=== PATIENT | female | born 1945 | race Caucasian/White ===

== ENCOUNTER 2019-03-30 10:25 | Outpatient (CLI) | payer MEDICARE, BC, SELFPAY ==
[2019-03-30 13:32] LABS: Potassium 3.1 mmol/L (3.4-5.0)
== END 2019-03-30 10:26 | disposition home or self-care (01) ==
LOC: ANHWCLAB 10:29
PROVIDERS: PCP Emergency Medicine; Visit Provider Emergency Medicine
DX: E87.6 Hypokalemia (principal)
CPT/HCPCS: 36415; 84132

== ENCOUNTER 2019-04-09 10:55 | Outpatient (CLI) | payer MEDICARE, BC, SELFPAY ==
[2019-04-09 13:51] LABS: Blood Urea Nitrogen 15 mg/dL (7-17); Calcium 9.1 mg/dL (8.4-10.2); Carbon Dioxide 24 mmol/L (22-30); Chloride 103 mmol/L (98-107); Estimated Glomerular Filt Rate > 60; Glucose 95 mg/dL (65-105); Potassium 3.8 mmol/L (3.4-5.0); Sodium 141 mmol/L (137-145)
[2019-04-09 14:21] LABS: Thyroid Stimulating Hormone 0.213 uIU/mL (0.465-4.680)
== END 2019-04-09 10:56 | disposition home or self-care (01) ==
LOC: ANHWCLAB 10:58
PROVIDERS: PCP Emergency Medicine; Visit Provider Emergency Medicine
DX: E78.2 Mixed hyperlipidemia (principal); E87.6 Hypokalemia; E03.9 Hypothyroidism, unspecified
CPT/HCPCS: 36415; 80048; 84443

== ENCOUNTER 2019-05-19 10:39 | Outpatient (CLI) | payer MEDICARE, BC, SELFPAY ==
[2019-05-19 14:01] LABS: Alanine Aminotransferase 27 U/L (4-35); Albumin Level 4.5 g/dL (3.5-5.1); Alkaline Phosphatase 70 U/L (38-126); Aspartate Amino Transferase 26 U/L (14-36); Bilirubin,Total 0.7 mg/dL (0.2-1.3); Blood Urea Nitrogen 20 mg/dL (7-17); Calcium 9.3 mg/dL (8.4-10.2); Carbon Dioxide 27 mmol/L (22-30); Chloride 104 mmol/L (98-107); Cholesterol 228 mg/dL (0-200); Estimated Glomerular Filt Rate > 60; Glucose 107 mg/dL (65-105); HDL Direct 76 mg/dL; Potassium 3.7 mmol/L (3.4-5.0); Sodium 140 mmol/L (137-145); Triglycerides 139 mg/dL (<150)
[2019-05-19 14:12] LABS: LDL Cholesterol Direct 132 mg/dL
== END 2019-05-19 10:40 | disposition home or self-care (01) ==
PROVIDERS: PCP Emergency Medicine; Visit Provider Emergency Medicine
DX: E78.2 Mixed hyperlipidemia (principal); E03.9 Hypothyroidism, unspecified
CPT/HCPCS: 36415; 80053; 80061; 84443

== ENCOUNTER 2019-10-16 09:37 | Outpatient (CLI) | payer MEDICARE, BC, SELFPAY ==
[2019-10-16 10:15] LABS: Alanine Aminotransferase 24 U/L (4-35); Albumin Level 4.4 g/dL (3.5-5.1); Alkaline Phosphatase 57 U/L (38-126); Anion Gap 8 mmol/L (8-16); Aspartate Amino Transferase 27 U/L (14-36); Bilirubin,Total 0.7 mg/dL (0.2-1.3); Blood Urea Nitrogen 12 mg/dL (7-17); Carbon Dioxide 32 mmol/L (22-30); Chloride 102 mmol/L (98-107); Cholesterol 185 mg/dL (0-200); Estimated Glomerular Filt Rate > 60; Glucose 103 mg/dL (65-105); HDL Direct 53 mg/dL; Potassium 3.1 mmol/L (3.4-5.0); Sodium 142 mmol/L (137-145); Triglycerides 140 mg/dL (<150)
[2019-10-16 10:33] LABS: LDL Cholesterol Direct 93 mg/dL
== END 2019-10-16 09:38 | disposition home or self-care (01) ==
LOC: ANHLAB 09:40
PROVIDERS: PCP Emergency Medicine; Visit Provider Emergency Medicine
DX: E78.5 Hyperlipidemia, unspecified (principal)
CPT/HCPCS: 36415; 80053; 80061

== ENCOUNTER 2019-10-23 10:13 | Outpatient (CLI) | payer MEDICARE, BC, SELFPAY ==
[2019-10-23 11:17] LABS: Potassium 3.4 mmol/L (3.4-5.0)
== END 2019-10-23 10:14 | disposition home or self-care (01) ==
LOC: ANHLAB 10:15
PROVIDERS: PCP Emergency Medicine; Visit Provider Emergency Medicine
DX: E78.5 Hyperlipidemia, unspecified (principal); E87.6 Hypokalemia
CPT/HCPCS: 36415; 84132

== ENCOUNTER 2019-11-06 09:00 | Outpatient (CLI) | payer MEDICARE, BC, SELFPAY ==
[2019-11-06 09:53] LABS: Potassium 3.4 mmol/L (3.4-5.0)
== END 2019-11-06 09:01 | disposition home or self-care (01) ==
LOC: ANHLAB 09:02
PROVIDERS: PCP Emergency Medicine; Visit Provider Emergency Medicine
DX: Z86.39 Personal history of other endocrine, nutritional and metabolic disease (principal)
CPT/HCPCS: 36415; 84132

== ENCOUNTER → 2020-04-13 11:53 | Outpatient (CLI) | payer MEDICARE, BC, SELFPAY ==
[2020-04-13 19:41] LABS: SARS-CoV-2 RNA PCR Negative
== END ==
PROVIDERS: PCP Emergency Medicine; Visit Provider Emergency Medicine
DX: R68.89 Other general symptoms and signs (principal); Z20.822 Contact with and (suspected) exposure to COVID-19
CPT/HCPCS: C9803; U0003; U0005

== ENCOUNTER 2020-04-21 10:24 | Outpatient (CLI) | payer MEDICARE, BC, SELFPAY ==
[2020-04-21 11:02] LABS: Alanine Aminotransferase 27 U/L (4-35); Albumin Level 4.5 g/dL (3.5-5.1); Alkaline Phosphatase 54 U/L (38-126); Anion Gap 5 mmol/L (8-16); Aspartate Amino Transferase 31 U/L (14-36); Blood Urea Nitrogen 24 mg/dL (7-17); Calcium 9.6 mg/dL (8.4-10.2); Carbon Dioxide 35 mmol/L (22-30); Chloride 101 mmol/L (98-107); Cholesterol 220 mg/dL (0-200); Estimated Glomerular Filt Rate > 60; Glucose 109 mg/dL (65-105); HDL Direct 75 mg/dL; Potassium 3.5 mmol/L (3.4-5.0); Sodium 141 mmol/L (137-145); Triglycerides 111 mg/dL (<150)
[2020-04-21 11:14] LABS: LDL Cholesterol Direct 120 mg/dL
== END 2020-04-21 10:25 | disposition home or self-care (01) ==
LOC: ANHLAB 10:29
PROVIDERS: PCP Emergency Medicine; Visit Provider Emergency Medicine
DX: E78.2 Mixed hyperlipidemia (principal)
CPT/HCPCS: 36415; 80053; 80061; 84443

== ENCOUNTER 2020-06-16 09:28 | Outpatient (CLI) | payer MEDICARE, BC, SELFPAY ==
--- NOTE | ~2020-06-16 | MM_ITS ---
EXAMINATION: MM screening [facility] BI w sofia HISTORY: Screening mammogram TECHNIQUE: Craniocaudal and mediolateral oblique 3-D tomosynthesis images were obtained and synthetic 2-D images were generated. CAD analysis was submitted and interpreted. COMPARISON: 12/17/2018, 04/10/2017 BREAST PARENCHYMAL COMPOSITION: The breasts are almost entirely fatty. FINDINGS: RIGHT BREAST: There is no evidence of suspicious mass, calcification, or architectural distortion to suggest malignancy. There has been no significant interval change. LEFT BREAST: A mass is present in the posterior third of the inner breast 11 cm from the nipple. IMPRESSION: 1. Left breast mass. 2. Additional mammographic views and possible breast ultrasound are recommended. BI-RADS Category 0: Incomplete: Needs additional imaging evaluation. Reviewed, dictated and finalized at location A. IMPRESSION: 1. Left breast mass. 2. Additional mammographic views and possible breast ultrasound are recommended . BI-RADS Category 0: Incomplete: Needs additional imaging evaluation.
== END 2020-06-16 09:29 | disposition home or self-care (01) ==
LOC: ANHIMG 09:35
PROVIDERS: PCP Emergency Medicine; Visit Provider Emergency Medicine
DX: Z12.31 Encounter for screening mammogram for malignant neoplasm of breast (principal); R92.8 Other abnormal and inconclusive findings on diagnostic imaging of breast
CPT/HCPCS: 77063; 77067

== ENCOUNTER 2020-06-23 10:27 | Outpatient (CLI) | payer MEDICARE, BC, SELFPAY ==
--- NOTE | ~2020-06-23 | MMUS_ITS ---
EXAMINATION: MM diagnostic mammo unilat LT, US breast LT limited HISTORY: Left breast mass reported in posterior third of inner left breast on screening 06/16/2020 anh mogram TECHNIQUE: Additional 3-D tomosynthesis images of the left breast were performed and synthetic 2-D im ages were generated. CAD analysis was submitted and interpreted. High resolution upper and lower inn er quadrant left breast ultrasound was performed. COMPARISON: 06/16/2020, 12/17/2018 bilateral digital screening mammogram examinations FINDINGS: MAMMOGRAPHIC FINDINGS: An irregular 5 mm opacity is noted in the posterior aspect of the mid to upper inner left breast. The irregular margins and the fact that this is completely new since 12/17/2018 are suspicious. ULTRASOUND: 10:00 9 cm from nipple: There is an irregular hypoechoic 4.6 x 3.9 x 5 mm solid mass with posterior s hadowing, suspicious for small malignancy. IMPRESSION: 1. 5 mm irregular shadowing suspicious mass at left breast 10:00 9 cm from nipple, suggestive of karin gnancy 2. Ultrasound-guided biopsy of right breast 10:00 lesion is recommended BI-RADS category 4, suspicious findings. Dr. Rtoh telephoned the report and ultrasound guided biopsy recommendation on 06/23/[address] Young' answering service. Dr. Young returned the call at 1219 hours, and Dr. Roth gave the report of suspected small malignan cy and recommended ultrasound guided biopsy at 10:00 at right breast Reviewed, dictated and finalized at location A. IMPRESSION: 1. 5 mm irregular shadowing suspicious mass at left breast 10:00 9 cm from nipp le, suggestive of malignancy 2. Ultrasound-guided biopsy of right breast 10:00 lesion is recommended BI-RADS category 4, suspicious findings. Dr. Roth telephoned the report and ultrasound guided biopsy recommendation on at [address] Young' answering service. Dr. Young returned the call at 1219 hours, and Dr. Roth gave the report of pabon spected small malignancy and recommended ultrasound guided biopsy at 10:00 at [facility] breast
== END 2020-06-23 10:28 | disposition home or self-care (01) ==
PROVIDERS: PCP Emergency Medicine; Visit Provider Emergency Medicine
DX: N63.0 Unspecified lump in unspecified breast (principal); R92.8 Other abnormal and inconclusive findings on diagnostic imaging of breast
CPT/HCPCS: 76642; 77065

== ENCOUNTER 2020-06-28 09:08 | Outpatient (CLI) | payer MEDICARE, BC, SELFPAY ==
--- NOTE | ~2020-06-28 | MMUS_ITS ---
MM post biopsy invasive LT, US breast biopsy LT w image 06/28/2020 10:05 (accession [id number]), 06/28/2020 10:04 (accession [id number]) EXAMINATION: US GUIDED NEEDLE BIOPSY WITH VACUUM ASSISTANCE DATE: 06/28/2020 10:14 CDT INDICATION: Left breast mass seen on prior examinations. Ultrasound-guided core biopsy is requested to evaluate for malignancy. TECHNIQUE AND FINDINGS: The risks and potential benefits of the procedure were discussed with the patient, and written inform ed consent was obtained. After sterile preparation of the left breast, 1% lidocaine was utilized for local anesthesia. 1% lidocaine with epinephrine was used for deep anesthesia. A 10G vacuum-assisted biopsy gun needle was advanced through to the outer edge of the region of inter est from a superior approach utilizing sonographic guidance. A total of three tissue core samples we re obtained through the lesion. An Inrad tissue marker clip was then placed at the biopsy site. Hemo stasis was achieved. The patient tolerated procedure well and there was no evidence of immediate complication. The patien t was given verbal instructions partly is from the department. Left breast mammograms to document ti ssue marker clip placement. The tissue samples were submitted to surgical pathology for histologic an alysis. IMPRESSION: 1. Status post ultrasound-guided vacuum-assisted biopsy of left breast mass with tissue marker placem ent. The tissue marker is present adjacent to the nodule of interest in the upper. Inner quadrant Ple ase refer to pathology report for histologic analysis. If the pathology specimen is benign, consider further evaluation with stereotactic biopsy to exclude sampling error. Reviewed, dictated and finalized at location A. IMPRESSION: 1. Status post ultrasound-guided vacuum-assisted biopsy of left breast mass wit h tissue marker placement. The tissue marker is present adjacent to the nodule of interest in the upper. Inner quadrant Please refer to pathology report for h istologic analysis. If the pathology specimen is benign, consider further evalu ation with stereotactic biopsy to exclude sampling error.
== END 2020-06-28 09:09 | disposition home or self-care (01) ==
PROVIDERS: PCP Emergency Medicine; Visit Provider Emergency Medicine
DX: C50.212 Malignant neoplasm of upper-inner quadrant of left female breast (principal)
CPT/HCPCS: 19083; 88305; 88360; A4648

== ENCOUNTER 2020-08-09 09:28 | Outpatient (CLI) | payer MEDICARE, BC, SELFPAY ==
--- NOTE | 2020-08-09 09:30 | ECG_ITS ---
Measurements Intervals [place] Rate: 74 P: 47 AK: 189 QRS: -18 QRSD: 102 T: 33 QT: 374 QTc: 415 Interpretive Statements SINUS RHYTHM POOR R WAVE PROGRESSION, ANTERIOR LEADS INFERIOR INFARCT, AGE INDETERMINATE ABNORMAL ECG Electronically Signed On 08-09-2020 10:14:48 CDT by Vitor Craven D.O.
[2020-08-09 10:08] LABS: Anion Gap 11 mmol/L (8-16); Blood Urea Nitrogen 17 mg/dL (7-17); Calcium 9.5 mg/dL (8.4-10.2); Carbon Dioxide 28 mmol/L (22-30); Chloride 104 mmol/L (98-107); Estimated Glomerular Filt Rate > 60; Glucose 105 mg/dL (65-105); Potassium 3.2 mmol/L (3.4-5.0); Sodium 143 mmol/L (137-145)
== END 2020-08-09 09:29 | disposition home or self-care (01) ==
LOC: ANHSURGERY 09:33
PROVIDERS: Anesthesiology; PCP Emergency Medicine; Visit Provider Surgery
DX: I10 Essential (primary) hypertension (principal); Z01.818 Encounter for other preprocedural examination; R94.31 Abnormal electrocardiogram [ECG] [EKG]
CPT/HCPCS: 36415; 80048; 93005

== ENCOUNTER → 2020-08-13 00:21 | Outpatient (CLI) | payer MEDICARE, BC, SELFPAY ==
[2020-08-13 19:27] LABS: SARS-CoV-2 RNA PCR Negative
== END ==
PROVIDERS: PCP Emergency Medicine; Visit Provider Surgery
DX: Z01.812 Encounter for preprocedural laboratory examination (principal); Z20.822 Contact with and (suspected) exposure to COVID-19
CPT/HCPCS: C9803; U0003; U0005

== ENCOUNTER 2020-08-17 01:21 | Day surgery (SDC) | payer MEDICARE, BC, SELFPAY ==
[2020-07-29 14:48] VITALS: BMI 34.3
--- NOTE | 2020-08-16 13:45 | WPDANESEPPF ---
Anes - Initial Pre Proc Eval Procedure: Operation Date: 08/17/20 09:30 Proposed Procedures p Left Breast Biopsy with Ultrasound And/Or Mammogram Guided Needle Localization - Carlos Lynn MD s Left Breast Lumpectomy With Axillary [place] Lymph Node Biopsy - Carlos Lynn MD Date/Time: 08/16/20 13:45 Surgeon: Carlos Lynn MD Pre Op Diagnosis: left breast ca Patient Data Age: 74 Gender: F Height: 1.63 m Weight: 90.75 kg Allergies Allergy/AdvReac Type Severity Reaction Status Date / Time triamcinolone Allergy Unknown Hives Verified 08/17/20 07:02 Home Medications Medication Instructions Recorded Confirmed Type alendronate 70 mg tablet See Rx Instructions .ROUTE 01/25/20 07/29/20 Rx .COMPLEX #12 tablet indapamide 1.25 mg tablet 1.25 mg PO DAILY #90 tablet 03/14/20 07/29/20 Rx potassium chloride 10 mEq 10 meq PO EVERY OTHER DAY tablet 05/11/20 07/29/20 History tablet,extended release alprazolam 0.25 mg tablet 0.25 mg PO TID PRN #30 tablet 07/05/20 07/29/20 Rx levothyroxine 75 mcg tablet See Rx Instructions .ROUTE 07/08/20 07/29/20 Rx .COMPLEX #90 tablet pantoprazole 40 mg tablet,delayed See Rx Instructions .ROUTE 07/08/20 07/29/20 Rx release .COMPLEX #90 tablet simvastatin 10 mg tablet See Rx Instructions .ROUTE 07/15/20 07/29/20 Rx .COMPLEX #90 tablet losartan 25 mg tablet See Rx Instructions .ROUTE 07/20/20 07/29/20 Rx .COMPLEX #90 tablet cholecalciferol (vitamin D3) 250 mcg PO DAILY 07/29/20 07/29/20 History multivitamin,vy-ekxm-eszxnptb 1 tablet PO DAILY 07/29/20 07/29/20 History [Complete Multivitamin] Patient hx anesthesia problems: none Family hx anesthesia problems: none PMFSH Past Medical History Medical History (Updated 08/16/20 @ 13:46 by Xander Stanton MD) Anxiety BMI 36.0-36.9,adult Ductal carcinoma of left breast High cholesterol Hypertension Hypothyroidism (acquired) Thyroid disease Surgical History Surgical History History of delivery 1971 Family History Family History Father Patient's father is , Onset Age: 91 Mother Breast cancer Grandparent Breast cancer Other Hypertension Social History Social History Smoking status: Never smoker Alcohol intake: never Substance use: never Living arrangements: alone Gender identity (if verbalized by the patient): Female Spiritual care concerns: No Anes - Eval Final PreProcedure Day of Procedure 08/16/20 13:45 Patient weight: obese Heart: regular rate and rhythm Lungs: clear to auscultation and normal air movement Airway: Mallampati scale class II Neurological: alert and oriented Last oral intake: >/= 8 hours ASA classification: III Emergent: no Anesthetic plan: proceed Anesthesia type and monitoring: general LMA Informed Consent: The patient's anesthetic plan and its attendant risks and benefits were discussed with the patient/family/POA. Questions were solicited and answers provided to the satisfaction of the patient/family/POA.
[2020-08-17] VITALS (12 sets, daily range): BP systolic 145–179; BP diastolic 61–96; PULSE 83–93; RESP 10–16; TEMP 36.1–36.4; O2SAT 93–100; BMI 35.4
--- NOTE | ~2020-08-17 | NM_ITS ---
NM sentinel node inject only DATE: 08/17/2020 11:45 INDICATION: Left breast cancer; sentinel node localization TECHNIQUE: The purpose of the procedure, technique and potential complications were discussed with marni vo patient. The patient indicated understanding and gave consent. Four equally divided doses totaling cumulative 1.068 mCi 99m technetium Lymphoseek were injected subd ermally in the periareolar area at 12:00, 3:00, 6:00 and 9:00. The patient tolerated the procedure well, without complaint or complication. IMPRESSION: Preoperative periareolar 99m technetium Lymphoseek subdermal injections for intraoperati ve sentinel node localization Reviewed, dictated and finalized at Location A. Reviewed, dictated and finalized at location A. IMPRESSION: Preoperative periareolar 99m technetium Lymphoseek subdermal injec tions for intraoperative sentinel node localization
--- NOTE | ~2020-08-17 | MM_ITS ---
MM needle loc LT DATE: 08/17/2020 08:18 INDICATION: Left breast cancer; preoperative breast marker localization TECHNIQUE: The purpose of the procedure, technique and potential locations were discussed with the hannah morrissey. The patient verbalized understanding and gave consent. Timeout procedure confirmed proper patient, procedure and breast. Breast was placed in compression with biopsy grid apparatus overlying the medial aspect of the breast . The skin was prepared with sterile Betadine solution. 1% lidocaine local anesthetic was administere d to the skin over the marker area. A 7 cm or Mammalok needle was introduced into the breast using co mpression device alpha and numeric coordinates. Needle depth was adjusted appropriately. Once the nee dle was in desired position, the wire was engaged to the tip of the needle. Final mediolateral and craniocaudal views confirm the wire intermittently associated with the radiopa que marker in the upper inner quadrant of the left breast. COMPARISON: 06/23/2020 diagnostic left mammogram 06/28/2020 postbiopsy left diagnostic mammogram IMPRESSION: Mammographically angulated percutaneous wire localization of radiopaque biopsy marker in the upper inner left breast Reviewed, dictated and finalized at Location A. Reviewed, dictated and finalized at location A. IMPRESSION: Mammographically angulated percutaneous wire localization of radiop aque biopsy marker in the upper inner left breast
--- NOTE | ~2020-08-17 | MM_ITS ---
MM surgical specimen LT DATE: 08/17/2020 11:30 INDICATION: Left breast cancer. Surgical excision of biopsy marker and surrounding tissues TECHNIQUE: Single mammographic noncompression exposure of surgical breast specimen COMPARISON: 08/17/2020 localization mammographic images FINDINGS: A spiculated 4.7 mm mammographic opacity and the radiopaque biopsy marker are present withi n the soft tissue specimen. IMPRESSION: Successful surgical excision of biopsy marker and adjacent 4.7 mm spiculated mammographic opacity Reviewed, dictated and finalized at Location A. Reviewed, dictated and finalized at location A. IMPRESSION: Successful surgical excision of biopsy marker and adjacent 4.7 mm s piculated mammographic opacity
[2020-08-17] MEDS: LACTATED RINGERS 1,000 ML 30 ML IV CONT ×3 (07:26→13:52)
--- NOTE | 2020-08-17 07:40 | SUR.PREOP ---
0735: NOTIFIED DR HUERTA, PT TO NEEDLE LOC
--- NOTE | 2020-08-17 09:06 | WPDHPUPDATE1 ---
History and Physical Update Update Date/Time: 08/17/20 09:06 History and Physical has been reviewed, including an updated exam of the patient. There are NO changes in the patient's condition. Risks, benefits, and alternatives have been discussed and questions answered. Patient agrees to proceed with procedure.
[2020-08-17] MEDS: ceFAZolin 2 GM/D5W 50 ML 2 GM/50 ML BAG IVPB (09:25)
--- NOTE | 2020-08-17 10:37 | SUR.OPER ---
[place] Node Biopsies of Left Breast #1, #2, #3, #4, and #5 sent with Sterling to the Lab and received by
--- NOTE | 2020-08-17 10:39 | SUR.OPER ---
[place] Node #1 (L Breast) Excision Time 10:07 [place] Node #2 (L Breast) Excision Time 10:07 [place] Node #3 (L Breast) Excision Time 10:11 [place] Node #4 (L Breast) Excision Time 10:18 [place] Node #5 (L Breast) Excision Time 10:27
[2020-08-17] MEDS: ISOSULFAN BLUE 1% INJ 5 ML VIAL SUB-Q (10:49)
--- NOTE | 2020-08-17 11:01 | SUR.OPER ---
Called and informed [facility]MS of incision for breast biopsy at 10:58.
--- NOTE | 2020-08-17 11:32 | SUR.OPER ---
Breast Biopsy @ 11:06 given to Sterling and taken to MAMMS. MAMMS received Breast Biopsy and will deliver to Pathology. WHITE - Anterior Margin WIRE - Medial Margin BLACK - Cephalad Margin PURPLE - Lateral Margin GREEN - Deep Posterior Margin Six Left Breast Re-Excision Biopsies w/ Sutures Inner Aspect sent with Sterling to the Lab. Six specimens given to Shazia in Lab. 1. Anterior Margin @1112 2. Cephalad Margin @ 1113 3. Lateral Margin @ 1119 4. Medial Margin @ 1120 5. Caudal Margin @ 1122 6. Posterior Margin @ 1124
[2020-08-17] MEDS: BUPIVACAINE/EPINEPHRINE 0.5% 50 ML VIAL INFILTRATE (11:46)
--- NOTE | 2020-08-17 12:15 | W.PM.PROC2 ---
Procedure Note - Detailed Date of Procedure 08/17/20 Pre-op Diagnosis left breast ca Post-op Diagnosis same Procedure Performed Wire localization left breast lumpectomy, left axillary sentinel lymph node biopsy Surgeon Carlos Lynn MD Cash[employer] Checker Coco BEARD Anesthesia general and local (0.5% Marcaine with epinephrine) Indications Patient was noted to have a 5 mm abnormality on breast imaging in the upper medial quadrant of the left breast. Diagnostic imaging as well as subsequent ultrasound-guided core biopsy confirmed this was invasive ductal carcinoma. After thorough discussion, the patient is taken to surgery now for wire localization left breast lumpectomy with left axillary sentinel lymph node biopsy. Findings Five sentinel lymph nodes were found and excised. These were sent to pathology fresh for permanent. The specimen mammogram of the lumpectomy showed the lesion to be present in the specimen. No gross evidence of lymph node metastases were noted. Description of Procedure Patient was taken to x-ray prior to surgery. Left breast wire localization as well as infiltration of radioisotope was performed. She was then seen in the preoperative area. Breast mammograms were examined and the patient was then taken back to surgery. She was induced into general anesthesia. The left breast and left axilla were prepped and draped. Care was taken not to disturb the localizing wire. The left arm was prepped such that it was mobile and in the field. Isosulfan Blue dye was infiltrated under the left nipple. Gentle breast massage was carried out for 2-3 minutes. The navigator was used to find the area of highest isotope emission in the left axilla. This was marked on the skin and then a left axillary incision was marked on the skin. Local anesthetic was infiltrated into the skin and the subcutaneous tissues. Incision was made and dissection down through the subcutaneous was carried out. We dissected down to the axillary tissue. The navigator was again used. We dissected to the area that was giving the most isotope emission and also found some greenish stained lymphatics heading in that direction. A sizable left axillary node was found. This actually was a somewhat enlarged node and a smaller node. Both had some dye staining and isotope emission. The larger node much more so than the smaller. Once these were removed, they were sent to pathology with the larger node labeled sentinel lymph node 1. The smaller node was labeled sentinel node 2. Cautery and clips were used for all dissection as well as some blunt dissection and sharp dissection. We then searched again with the navigator. An additional sentinel lymph node was found. This was carefully dissected and removed from the axilla. It was read checked with the navigator. It really did not have much in the way of dye staining. This was sent as sentinel node 3. Two more sentinel lymph nodes were found by using similar technique. Each was dissected free with cautery, blunt dissection, sharp dissection, and clips. Each was sent labeled sentinel lymph node 4 and sentinel lymph node 5. [place] lymph node 5 was fairly deep in the axilla and was somewhat enlarged. No further lymph nodes were identified by either palpation, isotope emission, or dye staining. We made the axilla hemostatic with cautery. The axilla was then closed in layers with interrupted 3 0 Monocryl suture. Subcuticular interrupted 3 0 Monocryl skin stitches were placed followed by a running 4 0 Monocryl subcuticular skin closure. The axillary incision was then quarantined with a towel. We turned our attention to the left breast. The mammographic images of the tumor were posted on a viewing board. The wire exited far medial in the upper half of the breast. The proposed incision was marked along the lines of least skin tension about half way from the nipple to the area judged to contain the breast cancer. Local anestheti
[2020-08-17] MEDS: ONDANSETRON INJ 4 MG/2 ML VIAL IV PUSH (12:37)
[2020-08-17] MEDS: HALOPERIDOL LACTATE 5 MG/ML VIAL 1 MG IV PUSH (13:28)
[2020-08-17] MEDS: SCOPOLAMINE 1.5 MG PATCH TRANSDERM (13:28)
[2020-08-17] MEDS: diphenhydrAMINE HCl INJ 50 MG/ML VIAL 12.5 MG IV PUSH (14:19)
== END 2020-08-17 15:16 | disposition home or self-care (01) ==
PROVIDERS: PCP Emergency Medicine; Visit Provider Surgery
PROC: (CPT 19301; principal; 2020-08-17 09:30)
PROC: (CPT 19301; 2020-08-17 09:30)
DX: C50.212 Malignant neoplasm of upper-inner quadrant of left female breast (principal); I10 Essential (primary) hypertension; E78.00 Pure hypercholesterolemia, unspecified; E03.9 Hypothyroidism, unspecified; E07.9 Disorder of thyroid, unspecified; F41.9 Anxiety disorder, unspecified; E66.9 Obesity, unspecified; Z68.35 Body mass index [BMI] 35.0-35.9, adult
CPT/HCPCS: 19301; 38525; 19281; 38792; 76098; 88307; A9270; A9520; C1713; C1769; J0690; J1100; J1200; J1630; J2405; J2704; J3010; J7030; J7120

== ENCOUNTER 2020-11-29 09:36 | Outpatient (CLI) | payer MEDICARE, BC, SELFPAY ==
[2020-11-29 10:02] LABS: Basophils Absolute Auto 0.1 K/mm3 (0.0-0.1); Basophils Percent Auto 1.1 % (0.2-1.2); Eosinophils Absolute Auto 0.2 K/mm3 (0-0.3); Eosinophils Percent Auto 3.2 % (0-4.4); Hematocrit 42.3 % (37.0-47.0); Hemoglobin 14.4 g/dL (12.0-15.0); Immature Granulocyte Absolute 0.03 K/mm3 (0.00-0.031); Immature Granulocyte Percent A 0.5 % (0-0.5); Lymphocytes Absolute Auto 1.22 K/mm3 (0.9-3.2); Lymphocytes Percent Auto 21.4 % (18.3-44.2); Mean Corpuscular Volume 88.1 fl (80-100); Mean Platelet Volume 9.2 fl (7.4-10.4); Monocytes Absolute Auto 0.5 K/mm3 (0.1-0.6); Monocytes Percent Auto 8.6 % (2.6-8.5); Neutrophils Absolute Auto 3.7 K/mm3 (1.3-6.7); Neutrophils Percent Auto 65.2 % (45.5-73.1); Platelet Count Result 229 k/mm3 (150-375); Red Cell Distribution Width 12.6 % (11.5-14.5); White Blood Count 5.7 K/mm3 (4.5-10.0)
[2020-11-29 10:07] LABS: Blood Urea Nitrogen 14 mg/dL (8-26); Carbon Dioxide 27 mmol/L (22-30); Chloride 103 mmol/L (98-109); Estimated Glomerular Filt Rate > 60; Glucose 102 mg/dL (70-105); Potassium 3.5 mmol/L (3.5-4.9); Sodium 143 mmol/L (138-146)
[2020-11-29 17:49] LABS: Alanine Aminotransferase 23 U/L (4-35); Albumin Level 4.7 g/dL (3.5-5.1); Alkaline Phosphatase 59 U/L (38-126); Anion Gap 10 mmol/L (8-16); Aspartate Amino Transferase 51 U/L (14-36); Bilirubin,Total 0.6 mg/dL (0.2-1.3); Blood Urea Nitrogen 16 mg/dL (7-17); Calcium 9.5 mg/dL (8.4-10.2); Carbon Dioxide 29 mmol/L (22-30); Chloride 102 mmol/L (98-107); Estimated Glomerular Filt Rate > 60; Glucose 95 mg/dL (65-110); Potassium 3.7 mmol/L (3.4-5.0); Sodium 141 mmol/L (137-145)
== END 2020-11-29 09:37 | disposition home or self-care (01) ==
LOC: ANHLAB 09:39
PROVIDERS: PCP Emergency Medicine; Visit Provider Internal Medicine Hematology & Oncology
DX: C50.912 Malignant neoplasm of unspecified site of left female breast (principal); Z17.0 Estrogen receptor positive status [ER+]
CPT/HCPCS: 36415; 80048; 80053; 85025

== ENCOUNTER 2020-12-06 09:53 | Outpatient (CLI) | payer MEDICARE, BC, SELFPAY ==
[2020-12-06 10:49] LABS: Alanine Aminotransferase 23 U/L (4-35); Albumin Level 4.6 g/dL (3.5-5.1); Alkaline Phosphatase 57 U/L (38-126); Anion Gap 8 mmol/L (8-16); Aspartate Amino Transferase 29 U/L (14-36); Bilirubin,Total 0.7 mg/dL (0.2-1.3); Blood Urea Nitrogen 14 mg/dL (7-17); Calcium 9.5 mg/dL (8.4-10.2); Carbon Dioxide 29 mmol/L (22-30); Chloride 104 mmol/L (98-107); Cholesterol 221 mg/dL (0-200); Estimated Glomerular Filt Rate > 60; Glucose 115 mg/dL (65-110); HDL Direct 65 mg/dL; Potassium 3.4 mmol/L (3.4-5.0); Sodium 141 mmol/L (137-145); Triglycerides 153 mg/dL (<150)
[2020-12-06 11:00] LABS: LDL Cholesterol Direct 116 mg/dL
[2020-12-06 11:23] LABS: Thyroid Stimulating Hormone 0.953 uIU/mL (0.465-4.680)
== END 2020-12-06 09:54 | disposition home or self-care (01) ==
PROVIDERS: PCP Emergency Medicine; Visit Provider Emergency Medicine
DX: E78.2 Mixed hyperlipidemia (principal)
CPT/HCPCS: 36415; 80053; 80061; 84443

== ENCOUNTER 2020-12-16 09:56 | Outpatient (CLI) | payer MEDICARE, BC, SELFPAY ==
--- NOTE | ~2020-12-16 | XR_ITS ---
EXAMINATION: XR chest 2V DATE: 12/16/2020 10:31 INDICATION: Shortness of breath. TECHNIQUE: Frontal and lateral views of the chest were obtained. COMPARISON: Chest radiograph 04/14/2007 FINDINGS: The chest demonstrates clear lungs without pneumonia, pleural effusion, or pneumothorax. Th e heart size is normal. IMPRESSION: 1. No acute cardiopulmonary disease. Reviewed, dictated and finalized at location A.
== END 2020-12-16 09:57 | disposition home or self-care (01) ==
PROVIDERS: PCP Emergency Medicine; Visit Provider Emergency Medicine
DX: R06.02 Shortness of breath (principal); R09.89 Other specified symptoms and signs involving the circulatory and respiratory systems
CPT/HCPCS: 71046

== ENCOUNTER 2021-02-28 09:50 | Outpatient (CLI) | payer MEDICARE, BC, SELFPAY ==
[2021-02-28 10:19] LABS: Basophils Absolute Auto 0.1 K/mm3 (0.0-0.1); Eosinophils Absolute Auto 0.1 K/mm3 (0-0.3); Eosinophils Percent Auto 2.1 % (0-4.4); Hematocrit 42.5 % (37.0-47.0); Immature Granulocyte Absolute 0.02 K/mm3 (0.00-0.031); Immature Granulocyte Percent A 0.3 % (0-0.5); Lymphocytes Absolute Auto 1.56 K/mm3 (0.9-3.2); Lymphocytes Percent Auto 27.3 % (18.3-44.2); Mean Corpuscular HGB Conc 32.9 g/dl (32-36); Mean Corpuscular Hemoglobin 30.7 pg (26-34); Mean Corpuscular Volume 93.2 fl (80-100); Mean Platelet Volume 9.4 fl (7.4-10.4); Monocytes Absolute Auto 0.4 K/mm3 (0.1-0.6); Monocytes Percent Auto 6.8 % (2.6-8.5); Neutrophils Absolute Auto 3.6 K/mm3 (1.3-6.7); Neutrophils Percent Auto 62.5 % (45.5-73.1); Platelet Count Result 210 k/mm3 (150-375); Red Blood Count 4.56 M/mm3 (4.2-5.4); Red Cell Distribution Width 12.3 % (11.5-14.5); White Blood Count 5.7 K/mm3 (4.5-10.0)
[2021-02-28 12:09] LABS: Alanine Aminotransferase 21 U/L (4-35); Albumin Level 4.2 g/dL (3.5-5.1); Alkaline Phosphatase 50 U/L (38-126); Anion Gap 9 mmol/L (8-16); Aspartate Amino Transferase 31 U/L (14-36); Bilirubin,Total 0.7 mg/dL (0.2-1.3); Blood Urea Nitrogen 17 mg/dL (7-17); Calcium 9.2 mg/dL (8.4-10.2); Carbon Dioxide 24 mmol/L (22-30); Chloride 104 mmol/L (98-107); Estimated Glomerular Filt Rate > 60; Glucose 101 mg/dL (65-110); Potassium 3.8 mmol/L (3.4-5.0); Sodium 137 mmol/L (137-145)
[2021-03-02 19:46] LABS: CA 15-3 24 U/mL (<32)
== END 2021-02-28 09:51 | disposition home or self-care (01) ==
PROVIDERS: PCP Emergency Medicine; Visit Provider Internal Medicine Hematology & Oncology
DX: C50.912 Malignant neoplasm of unspecified site of left female breast (principal); Z17.0 Estrogen receptor positive status [ER+]
CPT/HCPCS: 36415; 80053; 85025; 86300

== ENCOUNTER 2021-05-30 10:40 | Outpatient (CLI) | payer MEDICARE, BC, SELFPAY ==
[2021-05-30 10:59] LABS: Basophils Absolute Auto 0.1 K/mm3 (0.0-0.1); Basophils Percent Auto 0.8 % (0.2-1.2); Eosinophils Absolute Auto 0.2 K/mm3 (0-0.3); Eosinophils Percent Auto 3.7 % (0-4.4); Hematocrit 43.7 % (37.0-47.0); Hemoglobin 14.1 g/dL (12.0-15.0); Immature Granulocyte Absolute 0.01 K/mm3 (0.00-0.031); Immature Granulocyte Percent A 0.2 % (0-0.5); Lymphocytes Absolute Auto 1.36 K/mm3 (0.9-3.2); Mean Corpuscular HGB Conc 32.3 g/dl (32-36); Mean Corpuscular Hemoglobin 30.6 pg (26-34); Mean Corpuscular Volume 94.8 fl (80-100); Mean Platelet Volume 9.3 fl (7.4-10.4); Monocytes Absolute Auto 0.4 K/mm3 (0.1-0.6); Monocytes Percent Auto 7.3 % (2.6-8.5); Neutrophils Absolute Auto 3.8 K/mm3 (1.3-6.7); Platelet Count Result 205 k/mm3 (150-375); Red Blood Count 4.61 M/mm3 (4.2-5.4); Red Cell Distribution Width 12.4 % (11.5-14.5); White Blood Count 5.9 K/mm3 (4.5-10.0)
[2021-06-03 09:38] LABS: CA 15-3 23 U/mL (<32)
== END 2021-05-30 10:41 | disposition home or self-care (01) ==
LOC: ANHLAB 10:42
PROVIDERS: PCP Emergency Medicine; Visit Provider Internal Medicine Hematology & Oncology
DX: C50.912 Malignant neoplasm of unspecified site of left female breast (principal); Z17.0 Estrogen receptor positive status [ER+]
CPT/HCPCS: 36415; 85025; 86300

== ENCOUNTER 2021-05-30 11:43 | Outpatient (CLI) | payer MEDICARE, BC, SELFPAY ==
[2021-05-30 13:05] LABS: Alanine Aminotransferase 23 U/L (4-35); Albumin Level 4.1 g/dL (3.5-5.1); Alkaline Phosphatase 49 U/L (38-126); Anion Gap 8 mmol/L (8-16); Aspartate Amino Transferase 30 U/L (14-36); Bilirubin,Total 0.7 mg/dL (0.2-1.3); Blood Urea Nitrogen 21 mg/dL (7-17); Calcium 9.1 mg/dL (8.4-10.2); Carbon Dioxide 26 mmol/L (22-30); Chloride 106 mmol/L (98-107); Cholesterol 219 mg/dL (0-200); Estimated Glomerular Filt Rate > 60; Glucose 97 mg/dL (65-110); HDL Direct 65 mg/dL; Sodium 140 mmol/L (137-145); Triglycerides 168 mg/dL (<150)
[2021-05-30 13:15] LABS: LDL Cholesterol Direct 107 mg/dL
== END 2021-05-30 11:44 | disposition home or self-care (01) ==
PROVIDERS: PCP Emergency Medicine; Visit Provider Emergency Medicine
DX: E78.2 Mixed hyperlipidemia (principal); E07.9 Disorder of thyroid, unspecified; I10 Essential (primary) hypertension; R06.02 Shortness of breath; J70.1 Chronic and other pulmonary manifestations due to radiation
CPT/HCPCS: 36415; 80053; 80061; 84443; 85025; 86300

== ENCOUNTER 2021-06-07 11:17 | Outpatient (CLI) | payer MEDICARE, BC, SELFPAY ==
--- NOTE | ~2021-06-07 | MM_ITS ---
EXAMINATION: MM diagnostic anh BI w sofia HISTORY: Status post left partial mastectomy and radiotherapy for breast cancer TECHNIQUE ML, MLO and craniocaudal 3-D tomosynthesis images of both breasts were performed and synthe tic 2-D images were generated. CAD analysis was submitted and interpreted. COMPARISON: 06/2020 left breast biopsy 06/23/2020 diagnostic left mammogram and limited left breast ultrasound 06/16/2020 bilateral screening mammogram BREAST PARENCHYMAL COMPOSITION: There are scattered areas of fibroglandular density. FINDINGS: There is volume loss of the left breast compared to the right compatible with partial left mastectomy, with ill-defined mixed soft tissue and fat attenuation in the posterior aspect of the inn er mid left breast. This is likely postsurgical change. There are some benign calcifications bilatera lly, more numerous on the left. Mild diffuse skin thickening and accentuated fibroglandular stroma ar e likely secondary to radiotherapy. No interval suspicious mass, architectural distortion, malignant calcification, skin thickening or re traction is noted otherwise. IMPRESSION: 1. Status post left partial mastectomy and radiotherapy for breast cancer; probable benign postoperat santy change and postoperative radiation change 2. 6 month diagnostic left mammogram follow-up is recommended BI-RADS category 3, probably benign findings. Reviewed, dictated and finalized at location A. IMPRESSION: 1. Status post left partial mastectomy and radiotherapy for breast cancer; prob able benign postoperative change and postoperative radiation change 2. 6 month diagnostic left mammogram follow-up is recommended BI-RADS category 3, probably benign findings.
== END 2021-06-07 11:18 | disposition home or self-care (01) ==
LOC: ANHIMG 11:22
PROVIDERS: PCP Emergency Medicine; Visit Provider Internal Medicine Hematology & Oncology
DX: C50.912 Malignant neoplasm of unspecified site of left female breast (principal); Z17.0 Estrogen receptor positive status [ER+]; R92.8 Other abnormal and inconclusive findings on diagnostic imaging of breast
CPT/HCPCS: 77062; 77066; G0279

== ENCOUNTER 2021-07-24 11:42 | Emergency (ER) | payer MEDICARE, BC, SELFPAY ==
[2021-07-24 11:53] VITALS: BP 132/73; PULSE 88; RESP 18; TEMP 36.3; O2SAT 98
--- NOTE | 2021-07-24 12:16 | ED.SKABFB ---
HPI - Skin/Abscess/Foreign Bdy General Chief complaint: Skin/Abscess/Foreign Body Stated complaint: knot on back of neck Time Seen by Provider: 07/24/21 12:17 Source: patient Mode of arrival: ambulatory Limitations: no limitations History of Present Illness HPI narrative: 75-year-old female presents with complaint of hard bump to back of neck since yesterday. Reports mild tenderness. Does not remember noticing bump prior to yesterday. States that her family told her it is possibly infected. Range of motion to neck is normal. All systems reviewed and negative except as noted above. Related Data Home Medications Medication Instructions Recorded Confirmed potassium chloride 10 mEq 10 meq PO EVERY OTHER DAY 05/11/20 07/24/21 tablet,extended release (Klor-Con) cholecalciferol (vitamin D3) 125 250 mcg PO DAILY 07/29/20 07/24/21 mcg (5,000 unit) tablet multivitamin,ze-zuvk-fwlezkri 1 tablet PO DAILY 07/29/20 07/24/21 tamoxifen 20 mg tablet 20 mg PO DAILY 01/05/21 07/24/21 Allergies Allergy/AdvReac Type Severity Reaction Status Date / Time No Known Allergies Allergy Verified 07/24/21 12:08 Review of Systems Review of Systems: CONSTITUTIONAL: Denies fever, chills, or sweats. EYES: Denies visual changes, redness, or discharge. ENT: Denies rhinorrhea, congestion, sore throat, or otalgia. NECK: Reports hard lump to posterior aspect, right side of neck. CARDIOVASCULAR: Denies chest pain, palpitations, or edema. RESPIRATORY: Denies cough or dyspnea. GASTROINTESTINAL: Denies abdominal pain, nausea, vomiting, or diarrhea. GENITOURINARY: Denies dysuria or hematuria. SKIN: Denies rash or itching. MUSCULOSKELETAL: Denies back pain, joint pain, or myalgia. NEUROLOGIC: Denies headache, numbness, or weakness. PSYCHIATRIC: Denies anxiety or depression. All other systems reviewed are negative, except as documented in HPI. [facility] Past Medical History Medical History Chronic GERD Ductal carcinoma of left breast High cholesterol Hypertension Hypothyroidism (acquired) Missed x1 Osteopenia Surgical History Surgical History H/O lumpectomy 07/2020, Wire localization left breast lumpectomy, left axillary sentinel lymph node biopsy History of delivery x1 Family History Family History Father Patient's father is , Onset Age: 91 Hypertension Mother Breast cancer dx in 50s Grandparent Breast cancer Dx in 50s Social History Social History Smoking status: Never smoker Alcohol intake: never Substance use: never Gender identity (if verbalized by the patient): Female Spiritual care concerns: No Agree to blood products: Yes Comments At time of signature, agree with nursing past medical, surgical, social and family history. There is no relevant family history pertinent to the presenting complaint. Exam Narrative: GENERAL: This is a well-nourished, well-developed patient, in no apparent distress. HEAD: normocephalic, atraumatic. EYES: PERRL. Sclera clear/white. Vision is grossly intact. EARS: External ears normal NOSE: External nose normal NECK: Neck supple, non-tender without lymphadenopathy, thyromegaly. There is a firm cystlike lesion to posterior, right side neck. Approximately 4.5 x 4 cm. Mild erythema. No fluctuance. CARDIOVASCULAR: Regular rate and rhythm without murmurs, gallops, or rubs. RESPIRATORY: Clear to auscultation. Breath sounds equal bilaterally. No wheezes, rales, or rhonchi. SKIN: warm, Dry, intact with no suspicious lesions or rash, good texture and turgor. NEURO: awake, alert, and oriented to person, place and time. There were no obvious focal neurologic abnormalities. EXTREMITIES: Normal range of nori
== END 2021-07-24 12:27 | disposition home or self-care (01) ==
PROVIDERS: Emergency Provider Nurse Practitioner Family; PCP Emergency Medicine
DX: L72.9 Follicular cyst of the skin and subcutaneous tissue, unspecified (principal); K21.9 Gastro-esophageal reflux disease without esophagitis; E78.00 Pure hypercholesterolemia, unspecified; I10 Essential (primary) hypertension; E03.9 Hypothyroidism, unspecified; M81.0 Age-related osteoporosis without current pathological fracture; Z85.3 Personal history of malignant neoplasm of breast
CPT/HCPCS: 99213; G0463

== ENCOUNTER 2021-09-01 09:20 | Outpatient (CLI) | payer MEDICARE, BC, SELFPAY ==
[2021-09-01 09:45] LABS: Basophils Absolute Auto 0.1 K/mm3 (0.0-0.1); Basophils Percent Auto 0.9 % (0.2-1.2); Eosinophils Absolute Auto 0.1 K/mm3 (0-0.3); Eosinophils Percent Auto 1.9 % (0-4.4); Hematocrit 40.8 % (37.0-47.0); Hemoglobin 13.8 g/dL (12.0-15.0); Immature Granulocyte Absolute 0.03 K/mm3 (0.00-0.031); Immature Granulocyte Percent A 0.5 % (0-0.5); Lymphocytes Absolute Auto 1.86 K/mm3 (0.9-3.2); Lymphocytes Percent Auto 28.9 % (18.3-44.2); Mean Corpuscular HGB Conc 33.8 g/dl (32-36); Mean Corpuscular Hemoglobin 30.5 pg (26-34); Mean Corpuscular Volume 90.1 fl (80-100); Mean Platelet Volume 9.4 fl (7.4-10.4); Monocytes Absolute Auto 0.4 K/mm3 (0.1-0.6); Monocytes Percent Auto 6.1 % (2.6-8.5); Neutrophils Percent Auto 61.7 % (45.5-73.1); Platelet Count Result 208 k/mm3 (150-375); Red Blood Count 4.53 M/mm3 (4.2-5.4); White Blood Count 6.4 K/mm3 (4.5-10.0)
[2021-09-01 16:37] LABS: Alanine Aminotransferase 24 U/L (6-35); Albumin Level 4.3 g/dL (3.5-5.1); Alkaline Phosphatase 49 U/L (38-126); Anion Gap 6 mmol/L (8-16); Aspartate Amino Transferase 30 U/L (14-36); Bilirubin,Total 0.3 mg/dL (0.2-1.3); Blood Urea Nitrogen 18 mg/dL (7-17); Calcium 8.8 mg/dL (8.4-10.2); Carbon Dioxide 31 mmol/L (22-30); Chloride 103 mmol/L (98-107); Estimated Glomerular Filt Rate > 60; Glucose 93 mg/dL (65-110); Potassium 3.5 mmol/L (3.4-5.0); Sodium 140 mmol/L (137-145)
[2021-09-07 05:08] LABS: CA 15-3 31 U/mL (<32)
== END 2021-09-01 09:21 | disposition home or self-care (01) ==
LOC: ANHLAB 09:22
PROVIDERS: PCP Emergency Medicine; Visit Provider Internal Medicine Hematology & Oncology
DX: C50.912 Malignant neoplasm of unspecified site of left female breast (principal); Z17.0 Estrogen receptor positive status [ER+]
CPT/HCPCS: 36415; 80053; 85025; 86300

== ENCOUNTER 2021-11-27 10:05 | Outpatient (CLI) | payer MEDICARE, BC, SELFPAY ==
--- NOTE | ~2021-11-27 | MM_ITS ---
EXAMINATION: MM diagnostic anh LT w sofia HISTORY: History of left breast cancer TECHNIQUE: Craniocaudal, mediolateral, and mediolateral oblique 3-D tomosynthesis images of the left breast were performed and synthetic 2-D images were generated. CAD analysis was submitted and interpr eted. COMPARISON: 06/07/2021, 06/23/2020, 06/16/2020 BREAST PARENCHYMAL COMPOSITION: There are scattered areas of fibroglandular density. FINDINGS: There are persistent lumpectomy changes in the posterior third of the upper-outer quadrant of the breast which demonstrates slight decrease in prominence since the comparison examination. No s uspicious mass, calcification, or architectural distortion are identified. IMPRESSION: 1. Post lumpectomy changes without mammographic evidence of malignancy. 2. Routine screening mammography is recommended. BI-RADS Category 2: Benign finding(s). Reviewed, dictated and finalized at location A.
[2021-11-27 10:36] LABS: Alanine Aminotransferase 21 U/L (6-35); Albumin Level 4.1 g/dL (3.5-5.1); Alkaline Phosphatase 46 U/L (38-126); Anion Gap 10 mmol/L (8-16); Aspartate Amino Transferase 24 U/L (14-36); Bilirubin,Total 0.5 mg/dL (0.2-1.3); Blood Urea Nitrogen 14 mg/dL (7-17); Calcium 8.8 mg/dL (8.4-10.2); Carbon Dioxide 26 mmol/L (22-30); Chloride 104 mmol/L (98-107); Cholesterol 175 mg/dL (0-200); Estimated Glomerular Filt Rate > 60; Glucose 112 mg/dL (65-110); HDL Direct 63 mg/dL; Potassium 3.6 mmol/L (3.4-5.0); Sodium 140 mmol/L (137-145); Triglycerides 131 mg/dL (<150)
[2021-11-27 10:41] LABS: Basophils Percent Auto 0.6 % (0.2-1.2); Eosinophils Absolute Auto 0.2 K/mm3 (0-0.3); Eosinophils Percent Auto 3.4 % (0-4.4); Hematocrit 40.5 % (37.0-47.0); Hemoglobin 13.4 g/dL (12.0-15.0); Immature Granulocyte Absolute 0.01 K/mm3 (0.00-0.031); Immature Granulocyte Percent A 0.2 % (0-0.5); Lymphocytes Absolute Auto 1.48 K/mm3 (0.9-3.2); Lymphocytes Percent Auto 23.6 % (18.3-44.2); Mean Corpuscular HGB Conc 33.1 g/dl (32-36); Mean Corpuscular Volume 90.8 fl (80-100); Mean Platelet Volume 9.3 fl (7.4-10.4); Monocytes Absolute Auto 0.5 K/mm3 (0.1-0.6); Monocytes Percent Auto 8.1 % (2.6-8.5); Neutrophils Percent Auto 64.1 % (45.5-73.1); Platelet Count Result 212 k/mm3 (150-375); Red Blood Count 4.46 M/mm3 (4.2-5.4); Red Cell Distribution Width 11.9 % (11.5-14.5); White Blood Count 6.3 K/mm3 (4.5-10.0)
[2021-11-27 10:46] LABS: LDL Cholesterol Direct 77 mg/dL
[2021-11-29 12:54] LABS: CA 15-3 23 U/mL (<32)
[2021-11-30 11:31] LABS: Vitamin D 1,25 (OH)2 Total 58 pg/mL (18-72); Vitamin D2 1,25 (OH)2 <8 pg/mL; Vitamin D3 1,25 (OH)2 58 pg/mL
== END 2021-11-27 10:06 | disposition home or self-care (01) ==
PROVIDERS: PCP Emergency Medicine; Visit Provider Internal Medicine Hematology & Oncology
DX: E78.2 Mixed hyperlipidemia (principal); I10 Essential (primary) hypertension; E03.9 Hypothyroidism, unspecified; E55.9 Vitamin D deficiency, unspecified; Z85.3 Personal history of malignant neoplasm of breast
CPT/HCPCS: 36415; 77061; 77065; 80053; 80061; 82652; 84443; 85025; 86300; G0279

== ENCOUNTER 2021-12-01 10:50 | Outpatient (CLI) | payer MEDICARE, BC, SELFPAY | END 2021-12-01 10:51 | disposition home or self-care (01) | PROVIDERS: PCP Emergency Medicine; Visit Provider Emergency Medicine | DX: R73.9 Hyperglycemia, unspecified (principal); E87.6 Hypokalemia | CPT/HCPCS: 36415; 83036 ==

== ENCOUNTER 2022-03-20 10:10 | Outpatient (CLI) | payer MEDICARE, BC, SELFPAY ==
[2022-03-20 10:25] LABS: Basophils Absolute Auto 0.1 K/mm3 (0.0-0.1); Eosinophils Absolute Auto 0.2 K/mm3 (0-0.3); Hematocrit 42.4 % (37.0-47.0); Hemoglobin 14.2 g/dL (12.0-15.0); Immature Granulocyte Absolute 0.03 K/mm3 (0.00-0.031); Immature Granulocyte Percent A 0.5 % (0-0.5); Lymphocytes Absolute Auto 1.74 K/mm3 (0.9-3.2); Lymphocytes Percent Auto 27.8 % (18.3-44.2); Mean Corpuscular HGB Conc 33.5 g/dl (32-36); Mean Corpuscular Hemoglobin 30.7 pg (26-34); Mean Corpuscular Volume 91.8 fl (80-100); Monocytes Absolute Auto 0.5 K/mm3 (0.1-0.6); Monocytes Percent Auto 7.3 % (2.6-8.5); Neutrophils Absolute Auto 3.8 K/mm3 (1.3-6.7); Neutrophils Percent Auto 60.4 % (45.5-73.1); Platelet Count Result 215 k/mm3 (150-375); Red Blood Count 4.62 M/mm3 (4.2-5.4); Red Cell Distribution Width 11.9 % (11.5-14.5); White Blood Count 6.3 K/mm3 (4.5-10.0)
[2022-03-20 12:25] LABS: Alanine Aminotransferase 27 U/L (6-35); Albumin Level 4.1 g/dL (3.5-5.1); Alkaline Phosphatase 51 U/L (38-126); Anion Gap 6 mmol/L (8-16); Aspartate Amino Transferase 32 U/L (14-36); Bilirubin,Total 0.6 mg/dL (0.2-1.3); Blood Urea Nitrogen 17 mg/dL (7-17); Calcium 9.2 mg/dL (8.4-10.2); Carbon Dioxide 31 mmol/L (22-30); Chloride 103 mmol/L (98-107); Estimated Glomerular Filt Rate > 60; Glucose 98 mg/dL (65-110); Potassium 3.8 mmol/L (3.4-5.0); Sodium 140 mmol/L (137-145)
[2022-03-25 06:14] LABS: CA 15-3 37 U/mL (<32)
== END 2022-03-20 10:11 | disposition home or self-care (01) ==
LOC: ANHLAB 10:12
PROVIDERS: PCP Emergency Medicine; Visit Provider Internal Medicine Hematology & Oncology
DX: C50.912 Malignant neoplasm of unspecified site of left female breast (principal); Z17.0 Estrogen receptor positive status [ER+]
CPT/HCPCS: 36415; 80053; 85025; 86300

== ENCOUNTER 2022-06-08 11:14 | Outpatient (CLI) | payer MEDICARE, BC, SELFPAY ==
[2022-06-08 11:38] LABS: Basophils Absolute Auto 0.1 K/mm3 (0.0-0.1); Eosinophils Absolute Auto 0.1 K/mm3 (0-0.3); Hematocrit 40.1 % (37.0-47.0); Hemoglobin 13.7 g/dL (12.0-15.0); Immature Granulocyte Absolute 0.01 K/mm3 (0.00-0.031); Immature Granulocyte Percent A 0.2 % (0-0.5); Lymphocytes Percent Auto 32.9 % (18.3-44.2); Mean Corpuscular HGB Conc 34.2 g/dl (32-36); Mean Corpuscular Hemoglobin 30.9 pg (26-34); Mean Corpuscular Volume 90.3 fl (80-100); Mean Platelet Volume 9.2 fl (7.4-10.4); Monocytes Absolute Auto 0.4 K/mm3 (0.1-0.6); Monocytes Percent Auto 6.7 % (2.6-8.5); Neutrophils Absolute Auto 3.5 K/mm3 (1.3-6.7); Neutrophils Percent Auto 57.2 % (45.5-73.1); Platelet Count Result 222 k/mm3 (150-375); Red Blood Count 4.44 M/mm3 (4.2-5.4); Red Cell Distribution Width 12.1 % (11.5-14.5); White Blood Count 6.1 K/mm3 (4.5-10.0)
[2022-06-08 13:35] LABS: Alanine Aminotransferase 25 U/L (6-35); Albumin Level 4.2 g/dL (3.5-5.1); Alkaline Phosphatase 50 U/L (38-126); Anion Gap 6 mmol/L (8-16); Aspartate Amino Transferase 27 U/L (14-36); Bilirubin,Total 0.7 mg/dL (0.2-1.3); Blood Urea Nitrogen 12 mg/dL (7-17); Calcium 8.8 mg/dL (8.4-10.2); Carbon Dioxide 31 mmol/L (22-30); Chloride 103 mmol/L (98-107); Cholesterol 200 mg/dL (0-200); Estimated Glomerular Filt Rate > 60; Glucose 90 mg/dL (65-110); HDL Direct 55 mg/dL; Potassium 3.5 mmol/L (3.4-5.0); Sodium 140 mmol/L (137-145); Triglycerides 175 mg/dL (<150)
[2022-06-08 13:46] LABS: LDL Cholesterol Direct 113 mg/dL
[2022-06-08 14:00] LABS: Hemoglobin A1C 5.8 % (<5.7)
[2022-06-13 13:30] LABS: Vitamin D 1,25 (OH)2 Total 45 pg/mL (18-72); Vitamin D2 1,25 (OH)2 <8 pg/mL; Vitamin D3 1,25 (OH)2 45 pg/mL
[2022-06-13 13:48] LABS: CA 15-3 30 U/mL (<32)
== END 2022-06-08 11:15 | disposition home or self-care (01) ==
LOC: ANHLAB 11:16
PROVIDERS: PCP Emergency Medicine; Visit Provider Internal Medicine Hematology & Oncology
DX: C50.912 Malignant neoplasm of unspecified site of left female breast (principal); E11.9 Type 2 diabetes mellitus without complications; I10 Essential (primary) hypertension; E55.9 Vitamin D deficiency, unspecified; Z17.0 Estrogen receptor positive status [ER+]
CPT/HCPCS: 36415; 80053; 80061; 82652; 83036; 85025; 86300

== ENCOUNTER 2022-06-11 14:33 | Outpatient (CLI) | payer MEDICARE, BC, SELFPAY ==
--- NOTE | ~2022-06-11 | MM_ITS ---
EXAMINATION: MM screening anh BI w sofia HISTORY: Screening mammogram TECHNIQUE: Craniocaudal and mediolateral oblique 3-D tomosynthesis images were obtained and synthetic 2-D images were generated. CAD analysis was submitted and interpreted. COMPARISON: 11/27/2021 diagnostic left mammogram 4. diagnostic bilateral mammogram BREAST PARENCHYMAL COMPOSITION: There are scattered areas of fibroglandular density. FINDINGS: There is further contraction of the scar in the posterior upper inner quadrant of the left breast, with bilateral benign calcifications There is no evidence of suspicious mass, calcification, or new architectural distortion to suggest malignancy in either breast. There has been no suspicious interval change. IMPRESSION: 1. Status post left partial mastectomy for breast cancer. No mammographic evidence of malignancy. 2. Recommend routine screening mammography in one year. BI-RADS Category 2: Benign finding(s). Reviewed, dictated and finalized at location B. IMPRESSION: 1. Status post left partial mastectomy for breast cancer. No mammographic evide nce of malignancy. 2. Recommend routine screening mammography in one year. BI-RADS Category 2: Benign finding(s).
== END 2022-06-11 14:34 | disposition home or self-care (01) ==
PROVIDERS: PCP Emergency Medicine; Visit Provider Internal Medicine Hematology & Oncology
DX: Z12.31 Encounter for screening mammogram for malignant neoplasm of breast (principal); Z90.12 Acquired absence of left breast and nipple
CPT/HCPCS: 77063; 77067

== ENCOUNTER 2022-08-24 05:01 | Day surgery (SDC) | payer MEDICARE, BC, SELFPAY ==
[2022-08-09 13:13] VITALS: BMI 30.2
[2022-08-24 09:17] VITALS: BP 157/79; RESP 20; TEMP 36.9; O2SAT 96
[2022-08-24] MEDS: LACTATED RINGERS 1,000 ML 150 ML IV CONT (09:27)
--- NOTE | 2022-08-24 09:31 | WPDANESEPPF ---
Anes - Initial Pre Proc Eval Procedure: Operation Date: 08/24/22 10:30 Proposed Procedures p Colonoscopy - Tirso Guerrero MD Date/Time: 08/24/22 09:31 Surgeon: Tirso Guerrero MD Pre Op Diagnosis: hx of colon polyps Patient Data Age: 76 Gender: F Height: 1.63 m Weight: 78.6 kg Last Vital Signs Temp 98.5 F 08/24/22 09:17 Resp 20 08/24/22 09:17 BP 157/79 H 08/24/22 09:17 Pulse Ox 96 08/24/22 09:17 O2 Del Method Room Air 08/24/22 09:17 Allergies Allergy/AdvReac Type Severity Reaction Status Date / Time No Known Allergies Allergy Verified 08/24/22 09:29 Home Medications Medication Instructions Recorded Confirmed Type cholecalciferol (vitamin D3) 125 250 mcg PO DAILY 07/29/20 08/24/22 History mcg (5,000 unit) tablet multivitamin,kp-niog-lbhhgldn 1 tablet PO DAILY 07/29/20 08/24/22 History tamoxifen 20 mg tablet 20 mg PO DAILY 01/05/21 08/24/22 History losartan 50 mg tablet 50 mg PO DAILY #90 tabs 09/26/21 08/24/22 Rx levothyroxine 75 mcg tablet See Rx Instructions .Route 12/22/21 08/24/22 Rx .COMPLEX #90 tabs alendronate 70 mg tablet See Rx Instructions .Route 06/14/22 08/24/22 Rx .COMPLEX #12 tabs indapamide 1.25 mg tablet See Rx Instructions .Route 06/20/22 08/24/22 Rx .COMPLEX #90 tabs pantoprazole 40 mg tablet,delayed See Rx Instructions .Route 06/20/22 08/24/22 Rx release .COMPLEX #90 tabs Patient hx anesthesia problems: none Family hx anesthesia problems: none Results Review: All pre-operative results and documents have been reviewed as part of the pre-operative evaluation. [facility] Past Medical History Medical History Chronic GERD Ductal carcinoma of left breast High cholesterol Hypertension Hypothyroidism (acquired) Missed x1 Osteopenia Surgical History Surgical History H/O lumpectomy 07/2020, Wire localization left breast lumpectomy, left axillary sentinel lymph node biopsy History of delivery x1 Family History Family History Father Patient's father is , Onset Age: 91 Hypertension Mother Breast cancer dx in 50s Grandparent Breast cancer Dx in 50s Social History Social History Smoking status: Never smoker Alcohol intake: never Substance use: never Substance use type: does not use Lack of Transportation: No Lack of Food: Never True Current Housing: I Have Housing Concerned About Future Housing: No Difficulty Paying Gas/Electric Bills: No Difficulty Paying for Meds: No Currently Unemployed: No Education: Master's Degree or Higher Difficulty w/ Childcare or Family Care: No Living arrangements: with family Occupation/Education: retired Gender identity (if verbalized by the patient): Female Spiritual care concerns: No Agree to blood products: Yes Anes - Eval Final PreProcedure Day of Procedure 08/24/22 09:31 Patient weight: overweight Heart: regular rate and rhythm Lungs: clear to auscultation Airway: Mallampati scale class II Neurological: alert and oriented Last oral intake: >/= 8 hours ASA classification: III Emergent: no Anesthetic plan: proceed Anesthesia type and monitoring: general GIVS and standard monitoring Results Review: All pre-operative results and documents have been reviewed as part of the pre-operative evaluation. Informed Consent: The patient's anesthetic plan and its attendant risks and benefits were discussed with the patient/family/POA. Questions were solicited and answers provided to the satisfaction of the patient/family/POA.
--- NOTE | 2022-08-24 09:35 | PM.HPGS ---
History of Present Illness History of Present Illness Consent: Risks, benefits, and alternatives have been discussed and questions answered. Patient agrees to proceed with procedure. Chief complaint: hx of colon polyps Narrative: Blanca Stewart is a 76 year old female with history of polyps, last colonoscopy 7 years ago Review of Systems Constitutional: Constitutional: Denies headache(s) and Denies weakness Eyes: Eyes: Denies blurry vision ENT: Reports Normal hearing present, Denies headache(s) and Denies neck pain Cardiovascular: Cardiovascular: Denies chest pain and Denies dyspnea Respiratory: Respiratory: Denies dyspnea Gastrointestinal: Gastrointestinal: Reports no additional gastrointestinal complaints Genitourinary: Genitourinary: Denies dysuria Musculoskeletal: Musculoskeletal: Denies neck pain Integumentary/Breasts: Skin/Breast: Denies dry skin Neurologic: Reports Normal hearing present, Denies headache(s) and Denies weakness Psychiatric: Psychiatric: Denies anxiety Endocrine: Endocrine: Denies change in body appearance Hematologic/Lymphatic: Hematologic/Lymphatic: Denies easy bleeding Allergic/Immunologic: Allergic/Immunologic: Denies urticaria PMFSH Past Medical History Medical History (Updated 08/24/22 @ 09:36 by Tirso Guerrero MD) Chronic GERD Colon polyp Ductal carcinoma of left breast High cholesterol Hypertension Hypothyroidism (acquired) Missed x1 Osteopenia Surgical History Surgical History H/O lumpectomy 07/2020, Wire localization left breast lumpectomy, left axillary sentinel lymph node biopsy History of delivery x1 Family History Family History Father Patient's father is , Onset Age: 91 Hypertension Mother Breast cancer dx in 50s Grandparent Breast cancer Dx in 50s Social History Social History Smoking status: Never smoker Alcohol intake: never Substance use: never Substance use type: does not use Lack of Transportation: No Lack of Food: Never True Current Housing: I Have Housing Concerned About Future Housing: No Difficulty Paying Gas/Electric Bills: No Difficulty Paying for Meds: No Currently Unemployed: No Education: Master's Degree or Higher Difficulty w/ Childcare or Family Care: No Living arrangements: with family Occupation/Education: retired Gender identity (if verbalized by the patient): Female Spiritual care concerns: No Agree to blood products: Yes Meds Home Medications and Allergies Home Medications Medication Instructions Recorded Confirmed Type cholecalciferol (vitamin D3) 125 250 mcg PO DAILY 07/29/20 08/24/22 History mcg (5,000 unit) tablet multivitamin,wh-xnpc-mtgobjty 1 tablet PO DAILY 07/29/20 08/24/22 History tamoxifen 20 mg tablet 20 mg PO DAILY 01/05/21 08/24/22 History losartan 50 mg tablet 50 mg PO DAILY #90 tabs 09/26/21 08/24/22 Rx levothyroxine 75 mcg tablet See Rx Instructions .Route 12/22/21 08/24/22 Rx .COMPLEX #90 tabs alendronate 70 mg tablet See Rx Instructions .Route 06/14/22 08/24/22 Rx .COMPLEX #12 tabs indapamide 1.25 mg tablet See Rx Instructions .Route 06/20/22 08/24/22 Rx .COMPLEX #90 tabs pantoprazole 40 mg tablet,delayed See Rx Instructions .Route 06/20/22 08/24/22 Rx release .COMPLEX #90 tabs Allergies Allergy/AdvReac Type Severity Reaction Status Date / Time No Known Allergies Allergy Verified 08/24/22 09:29 Vital Signs Vital Signs - 24 hr 08/24/22 09:17 Temperature 98.5 F Respiratory Rate 20 Blood Pressure 157/79 H Pulse Oximetry 96 Oxygen Delivery Room Air Exam Const: General: comfortable and no acute distress HENMT: Face/Nose/Sinus: Normal nares present Eyes: General: appearance
[2022-08-24 09:54] VITALS: BP 116/61; PULSE 84; RESP 24; O2SAT 96
[2022-08-24 10:04] VITALS: BP 102/64; PULSE 81; RESP 17; O2SAT 94
[2022-08-24 10:14] VITALS: PULSE 81; RESP 13; O2SAT 97
== END 2022-08-24 10:26 | disposition home or self-care (01) ==
PROVIDERS: PCP Emergency Medicine; Visit Provider Internal Medicine Gastroenterology
PROC: 0DJD8ZZ Inspection of Lower Intestinal Tract, Via Natural or Artificial Opening Endoscopic (ICD-10-PCS; CPT 45378; principal; 2022-08-24 10:30)
DX: Z12.11 Encounter for screening for malignant neoplasm of colon (principal); D12.3 Benign neoplasm of transverse colon; D12.4 Benign neoplasm of descending colon; K57.30 Diverticulosis of large intestine without perforation or abscess without bleeding; K64.8 Other hemorrhoids; I10 Essential (primary) hypertension; K21.9 Gastro-esophageal reflux disease without esophagitis; E03.9 Hypothyroidism, unspecified; Z85.3 Personal history of malignant neoplasm of breast; E78.00 Pure hypercholesterolemia, unspecified
CPT/HCPCS: 45380; 45385; 88305; J2704; J7120

== ENCOUNTER 2022-11-27 08:46 | Outpatient (CLI) | payer MEDICARE, BC, SELFPAY ==
--- NOTE | ~2022-11-27 | DEXA_ITS ---
Bone Density Report Name: HAIDER ROSALES Age: 77 Sex: Female Ethnicity: White Date of : 1945 Indication: monitoring treatment; parental hip fracture; height loss; prior fracture; cancer; postmenopausal Referring Provider: ALOK PÉREZ Study: Bone densitometry was performed. Exam Date: November 27, 2022 Accession number: [id number] Bone Density: Region BMD T-score Z-score Classification AP Spine(L1, L2) 1.136 1.4 3.8 Normal Femoral Neck (Left) 0.655 -1.7 0.4 Osteopenia Total Hip (Left) 0.916 -0.2 1.7 Normal Femoral Neck (Right) 0.627 -2.0 0.2 Osteopenia Total Hip (Right) 0.885 -0.5 1.4 Normal Total Hip Mean 0.901 -0.4 1.6 Normal World Health Organization criteria for BMD impression classify patients as: Normal (T-score at or above -1.0), Osteopenia (T-score between -1.0 and -2.5), or Osteoporosis (T-score at or below -2.5). 10-year Fracture Risk: FRAX not reported because: Treated for osteoporosis Previous Exams: Region Exam Age BMD T-score BMD Change BMD Change Date g/cm2 vs Baseline vs Previous AP Spine (L1-L2) 11/27/2022 77 1.136 1.4 0.090 (8.6%)* 0.105 (10.1%)* 12/17/2018 73 1.031 0.5 -0.015 (-1.4%) -0.015 (-1.4%) 05/09/2015 69 1.046 0.6 Total Hip(Left) 11/27/2022 77 0.916 -0.2 -0.019 (-2.1%) -0.059 (-6.1%) 12/17/2018 73 0.975 0.3 0.040 (4.3%)* 0.040 (4.3%)* 05/09/2015 69 0.935 -0.1 Total Hip(Right) 11/27/2022 77 0.885 -0.5 -0.011 (-1.2%) -0.046 (-5.0%) 12/17/2018 73 0.932 -0.1 0.035 (3.9%)* 0.035 (3.9%)* 05/09/2015 69 0.896 -0.4 *Denotes significance at 95% confidence level, LSC for AP Spine = 0.022 g/cm2, LSC for Total Hip = 0.027 g/cm2 Clinical Information Provided by Patient: Has had a low trauma fracture Parent has had a hip fracture Is being treated for osteoporosis Has used the following medications: Fosamax (i.e. alendronate), Vitamin D Has the following medical conditions: Cancer Patient maximum height was 65 Menopause Age: 55 Onset of menses at age 12 Number of children 1 Impression: The patient has low bone mass, based on the Right Femoral Neck T-score. The patient has risk factors, including: parental hip fracture, previous fracture. The BMD for the Total Hip(Left) decreased, changing by -6.1% since the last DXA exam. The BMD for the Total Hip(Right) decreased, changing by -5.0% since the last DXA exam. Discussion: SIGNIFICANT BONE LOSS OBSERVED.
== END 2022-11-27 08:47 | disposition home or self-care (01) ==
PROVIDERS: PCP Emergency Medicine; Visit Provider Internal Medicine Hematology & Oncology
DX: M81.0 Age-related osteoporosis without current pathological fracture (principal); M85.852 Other specified disorders of bone density and structure, left thigh; M85.851 Other specified disorders of bone density and structure, right thigh
CPT/HCPCS: 77080

== ENCOUNTER 2022-11-27 09:12 | Outpatient (CLI) | payer MEDICARE, BC, SELFPAY ==
[2022-11-27 09:37] LABS: Basophils Absolute Auto 0.1 K/mm3 (0.0-0.1); Basophils Percent Auto 1.2 % (0.2-1.2); Eosinophils Absolute Auto 0.2 K/mm3 (0-0.3); Eosinophils Percent Auto 2.6 % (0-4.4); Hematocrit 40.4 % (37.0-47.0); Immature Granulocyte Absolute 0.01 K/mm3 (0.00-0.031); Immature Granulocyte Percent A 0.2 % (0-0.5); Lymphocytes Absolute Auto 1.81 K/mm3 (0.9-3.2); Lymphocytes Percent Auto 31.1 % (18.3-44.2); Mean Corpuscular HGB Conc 34.7 g/dl (32-36); Mean Corpuscular Hemoglobin 31.2 pg (26-34); Mean Platelet Volume 9.3 fl (7.4-10.4); Monocytes Absolute Auto 0.5 K/mm3 (0.1-0.6); Monocytes Percent Auto 9.1 % (2.6-8.5); Neutrophils Absolute Auto 3.3 K/mm3 (1.3-6.7); Neutrophils Percent Auto 55.8 % (45.5-73.1); Platelet Count Result 238 k/mm3 (150-375); Red Blood Count 4.49 M/mm3 (4.2-5.4); Red Cell Distribution Width 11.6 % (11.5-14.5); White Blood Count 5.8 K/mm3 (4.5-10.0)
[2022-11-27 12:09] LABS: Alanine Aminotransferase 21 U/L (6-35); Albumin Level 4.3 g/dL (3.5-5.1); Alkaline Phosphatase 48 U/L (38-126); Anion Gap 9 mmol/L (8-16); Aspartate Amino Transferase 26 U/L (14-36); Bilirubin,Total 0.7 mg/dL (0.2-1.3); Blood Urea Nitrogen 16 mg/dL (7-17); Carbon Dioxide 31 mmol/L (22-30); Chloride 99 mmol/L (98-107); Estimated Glomerular Filt Rate > 60; Glucose 102 mg/dL (65-110); Potassium 3.2 mmol/L (3.4-5.0); Sodium 139 mmol/L (137-145)
[2022-11-30 05:20] LABS: CA 15-3 30 U/mL (<32)
== END 2022-11-27 09:13 | disposition home or self-care (01) ==
PROVIDERS: PCP Emergency Medicine; Visit Provider Internal Medicine Hematology & Oncology
DX: C50.912 Malignant neoplasm of unspecified site of left female breast (principal); Z17.0 Estrogen receptor positive status [ER+]
CPT/HCPCS: 36415; 77080; 80053; 85025; 86300

== ENCOUNTER 2022-12-06 10:38 | Outpatient (CLI) | payer MEDICARE, BC, SELFPAY ==
[2022-12-06 12:30] LABS: Appearance Urine Clear (Clear); Bacteria Urine None Seen /hpf; Bilirubin Urine Negative (Negative); Blood Urine Negative (Negative); Color Urine Yellow (Yellow); Glucose Urine UA Negative (Negative); Ketones Urine Negative (Negative); Leukocyte Esterase Ur 2+ LEU/UL (NEGATIVE); Nitrate Urine Negative (Negative); Non Pathogenic Casts 0-2; Protein Urine Negative (Negative); RBC Urine 0-2 /hpf (0-2); Specific Grav Ur 1.006 (1.001-1.035); Squamous Epithelial Cell Urine None seen /hpf (Few); Urobilinogen Urine 0.2 mg/dL (<2.0)
[2022-12-06 12:33] LABS: Add Urine Microscopic? YES
== END 2022-12-06 10:39 | disposition home or self-care (01) ==
PROVIDERS: PCP Emergency Medicine; Visit Provider Registered Nurse
DX: R31.9 Hematuria, unspecified (principal); N39.0 Urinary tract infection, site not specified
CPT/HCPCS: 81001; 87077; 87086; 87186

== ENCOUNTER 2022-12-13 10:39 | Outpatient (CLI) | payer MEDICARE, BC, SELFPAY ==
[2022-12-13 12:19] LABS: Alanine Aminotransferase 20 U/L (6-35); Albumin Level 4.2 g/dL (3.5-5.1); Alkaline Phosphatase 46 U/L (38-126); Anion Gap 7 mmol/L (8-16); Aspartate Amino Transferase 34 U/L (14-36); Bilirubin,Total 0.8 mg/dL (0.2-1.3); Blood Urea Nitrogen 16 mg/dL (7-17); Calcium 8.9 mg/dL (8.4-10.2); Carbon Dioxide 30 mmol/L (22-30); Chloride 102 mmol/L (98-107); Cholesterol 205 mg/dL (0-200); Estimated Glomerular Filt Rate > 60; Glucose 105 mg/dL (65-110); HDL Direct 63 mg/dL; Potassium 3.4 mmol/L (3.4-5.0); Sodium 139 mmol/L (137-145); Triglycerides 131 mg/dL (<150)
[2022-12-13 12:29] LABS: LDL Cholesterol Direct 107 mg/dL
[2022-12-13 12:46] LABS: Thyroid Stimulating Hormone 0.624 uIU/mL (0.465-4.680)
[2022-12-16 21:11] LABS: Vitamin D 1,25 (OH)2 Total 62 pg/mL (18-72); Vitamin D2 1,25 (OH)2 <8 pg/mL; Vitamin D3 1,25 (OH)2 62 pg/mL
== END 2022-12-13 10:40 | disposition home or self-care (01) ==
PROVIDERS: PCP Emergency Medicine; Visit Provider Internal Medicine Hematology & Oncology
DX: I10 Essential (primary) hypertension (principal); E55.9 Vitamin D deficiency, unspecified
CPT/HCPCS: 36415; 80053; 80061; 82652; 84443

== ENCOUNTER 2022-12-21 15:01 | Outpatient (CLI) | payer MEDICARE, BC, SELFPAY ==
--- NOTE | ~2022-12-21 | US_ITS ---
EXAMINATION: US pelvic complete w TV DATE: 12/21/2022 16:08 INDICATION: Postmenopausal bleeding Comparison:No prior studies for comparison. TECHNIQUE: Multiple transabdominal and endovaginal sonographic images of the pelvis performed. FINDINGS: The uterus measures 9.5 x 4.3 x 5.1 cm. There is fluid in the endometrium. The endometrial complex measures 1.5 cm. There are nabothian cysts. The ovaries not identified, likely atrophic. There is no free fluid in the pelvis. There are no abnormal masses seen on either side. IMPRESSION: 1. Thickened endomtrial complex. The differential diagnosis includes endometrial hyperplasia, polyp a nd carcinoma. Biopsy is recommended. Reviewed, dictated and finalized at location B. IMPRESSION: 1. Thickened endomtrial complex. The differential diagnosis includes endometria l hyperplasia, polyp and carcinoma. Biopsy is recommended.
== END 2022-12-21 15:02 | disposition home or self-care (01) ==
LOC: ANHIMG 15:06
PROVIDERS: PCP Emergency Medicine; Visit Provider Registered Nurse
DX: N95.0 Postmenopausal bleeding (principal)
CPT/HCPCS: 76830; 76856

== ENCOUNTER 2023-01-16 02:46 | Day surgery (SDC) | payer MEDICARE, BC, SELFPAY ==
--- NOTE | 2023-01-08 08:22 | PC.NURSE ---
Report to the Outpatient Waiting Room, entrance under the green pavilion located off [facility], at time 0600 on date _01/16/23 . Planned Procedure Time: __0730 . Time changes happen often and if your time is changed the preop area will call you the afternoon before. - You and your visitor will be asked to self-screen and do not enter if you have any COVID symptoms. - A mask is optional within the hospital at this time. Patients may have clear liquids (water, carbonated beverages, clear teas, apple juice) until 3 hours prior to surgery with a maximum of 20 ounces. - No food from midnight until time of surgery - Infants may have breast milk until 4 hours before surgery, formula 6 hours prior to surgery. - Children will be allowed to drink immediately following surgery. If applicable, please bring a bottle or sippy cup to assist with drinking. Juice, water, soda, and popsicles are readily available. For infants on formula, please bring formula the day of surgery. Pacifiers are allowed. Take the following medications with a SIP of water the morning of surgery: __LEVOTHYROXINE DO NOT STOP ANY OF YOUR OTHER PRESCRIPTION MEDICATIONS PRIOR TO SURGERY ?EXCEPT THE FOLLOWING Medications to discontinue per physician ALL VITAMINS AND SUPPLEMENTS 3 DAYS PRE OP.LAST DOSE 01/12/23 Please no make-up, nail portuguese, hairspray, perfume, deodorant, or body powder the day of surgery. No jewelry (including any body piercings) or valuables the day of surgery, leave them at home. Please take a shower or bath the night before, or the morning of, surgery with an antibacterial soap. Wear comfortable, loose fitting clothing. Children are encouraged to wear pajamas. - Jewelry must be removed prior to entering the operating room. Rings and piercings that are not removed may be cut off. - The hospital will not accept responsibility for valuables. - Please leave all valuables, including medications, at home the day of surgery. If you are going home after surgery, a licensed utility worker driver must drive you home. - NO public transportation without another adult if you receive anesthesia. - We recommend that an adult stay with you for 24 hours following discharge. - We also recommend that you do not drive, make important decision, drink alcoholic beverages, or take any drugs that were not prescribed by your health care provider for at least 24 hours after your discharge time. For Pediatric surgeries, we recommend two adults accompany the child home. Follow any additional instructions given to you from your surgeon. If you or anyone in your household have experienced Covid symptoms in the past week, please notify your surgeon or the nurse liaison at the phone number below for possible testing. Telephone instructions given to ____PT and asked if any additional questions and then verbalized understanding. Patient advised to call surgeon office or pre surgery nurse liaison [phone] if any additional questions.
[2023-01-08 08:28] VITALS: BMI 32.1
[2023-01-16 06:15] VITALS: BP 154/79; PULSE 87; RESP 16; TEMP 36.7; O2SAT 94; BMI 32.5
--- NOTE | 2023-01-16 06:47 | WPDANESEPPF ---
Anes - Initial Pre Proc Eval Procedure: Operation Date: 01/16/23 07:30 Proposed Procedures p Hysteroscopy Dilation and Curettage with Removal of any Endometrial Lesion if Necessary - Osvaldo Taylor MD Date/Time: 01/16/23 06:47 Surgeon: Osvaldo Taylor MD Pre Op Diagnosis: post menopausal bleeding Patient Data Age: 77 Gender: F Height: 1.6 m Weight: 82.1 kg Allergies Allergy/AdvReac Type Severity Reaction Status Date / Time No Known Allergies Allergy Verified 01/08/23 08:14 Home Medications Medication Instructions Recorded Confirmed Type cholecalciferol (vitamin D3) 125 250 mcg PO DAILY 07/29/20 01/08/23 History mcg (5,000 unit) tablet multivitamin,vz-ewkj-psfngtor 1 tablet PO DAILY 07/29/20 01/08/23 History tamoxifen 20 mg tablet 20 mg PO DAILY 01/05/21 01/08/23 History indapamide 1.25 mg tablet See Rx Instructions .Route 06/20/22 01/08/23 Rx .COMPLEX #90 tabs pantoprazole 40 mg tablet,delayed See Rx Instructions .Route 06/20/22 01/08/23 Rx release .COMPLEX #90 tabs alendronate 70 mg tablet See Rx Instructions .Route 09/04/22 01/08/23 Rx .COMPLEX #12 tabs levothyroxine 75 mcg tablet See Rx Instructions .Route 09/18/22 01/08/23 Rx .COMPLEX #90 tabs losartan 50 mg tablet See Rx Instructions .Route 09/18/22 01/08/23 Rx .COMPLEX #90 tabs Patient hx anesthesia problems: none Family hx anesthesia problems: none Results Review: All pre-operative results and documents have been reviewed as part of the pre-operative evaluation. [facility] Past Medical History Medical History Abnormal urogenital discharge Chronic GERD Colon polyp Ductal carcinoma of left breast High cholesterol Hypertension Hypothyroidism (acquired) Missed x1 Osteopenia Postmenopausal bleeding Surgical History Surgical History H/O lumpectomy 07/2020, Wire localization left breast lumpectomy, left axillary sentinel lymph node biopsy History of delivery x1 Family History Family History Father Patient's father is , Onset Age: 91 Hypertension Mother Breast cancer dx in 50s Grandparent Breast cancer Dx in 50s Social History Social History Smoking status: Never smoker Second hand tobacco smoke exposure: No Alcohol intake: never Substance use: never Substance use type: does not use Lack of Transportation: No Lack of Food: Never True Current Housing: I Have Housing Concerned About Future Housing: No Difficulty Paying Gas/Electric Bills: No Difficulty Paying for Meds: No Currently Unemployed: No Education: Master's Degree or Higher Difficulty w/ Childcare or Family Care: No Living arrangements: alone Additional living arrangements comments: Occupation/Education: retired Gender identity (if verbalized by the patient): Female Sexual Orientation (if Verbalized by the Patient): Straight or Heterosexual Spiritual care concerns: No Agree to blood products: Yes Anes - Eval Final PreProcedure Day of Procedure 01/16/23 06:47 Patient weight: obese Heart: regular rate and rhythm Lungs: clear to auscultation Airway: Mallampati scale class II Neurological: alert and oriented Last oral intake: >/= 8 hours ASA classification: III Emergent: no Anesthetic plan: proceed Anesthesia type and monitoring: general GIVS and standard monitoring Results Review: All pre-operative results and documents have been reviewed as part of the pre-operative evaluation. Informed Consent: The patient's anesthetic plan and its attendant risks and benefits were discussed with the patient/family/POA. Questions were solicited and answers provided to the satisfaction of the patient/family/POA.
[2023-01-16] MEDS: LACTATED RINGERS 1,000 ML 30 ML IV CONT (06:50)
[2023-01-16] MEDS: ACETAMINOPHEN 500 MG TABLET 1000 MG PO (06:57)
--- NOTE | 2023-01-16 07:06 | PM.IMHP ---
H&P: HPI History of Present Illness Date/Time: 01/16/23 07:06 Chief Complaint: Postmenopausal bleeding Narrative: Patient on tamoxifen with history of postmenopausal bleeding. Ultrasound showed thickened endometrial stripe of 1.5cm. Hysteroscopy D and C and removal of lesion recommended. Review of Systems Review of Systems: All systems reviewed & are unremarkable except as noted in HPI and below Cardiovascular: Cardiovascular: Reports no additional cardiovascular complaints, Denies chest pain and Denies dyspnea Respiratory: Respiratory: Reports no additional respiratory complaints and Denies dyspnea Gastrointestinal: Gastrointestinal: Reports abdominal pain, Denies change in bowel habits, Denies diarrhea, Denies nausea and Denies vomiting Genitourinary: Genitourinary: Reports pelvic pain Musculoskeletal: Musculoskeletal: Reports back pain Integumentary/Breasts: Skin/Breast: Reports system reviewed and no additional complaints, except as docu Neurologic: Reports system reviewed and no additional complaints, except as documented PMF Past Medical History Medical History Abnormal urogenital discharge Chronic GERD Colon polyp Ductal carcinoma of left breast High cholesterol Hypertension Hypothyroidism (acquired) Missed x1 Osteopenia Postmenopausal bleeding Surgical History Surgical History H/O lumpectomy 07/2020, Wire localization left breast lumpectomy, left axillary sentinel lymph node biopsy History of delivery x1 Family History Family History Father Patient's father is , Onset Age: 91 Hypertension Mother Breast cancer dx in 50s Grandparent Breast cancer Dx in 50s Social History Social History Smoking status: Never smoker Second hand tobacco smoke exposure: No Alcohol intake: never Substance use: never Substance use type: does not use Lack of Transportation: No Lack of Food: Never True Current Housing: I Have Housing Concerned About Future Housing: No Difficulty Paying Gas/Electric Bills: No Difficulty Paying for Meds: No Currently Unemployed: No Education: Master's Degree or Higher Difficulty w/ Childcare or Family Care: No Living arrangements: alone Additional living arrangements comments: Occupation/Education: retired Gender identity (if verbalized by the patient): Female Sexual Orientation (if Verbalized by the Patient): Straight or Heterosexual Spiritual care concerns: No Agree to blood products: Yes Meds Home Medications and Allergies Home Medications Medication Instructions Recorded Confirmed Type cholecalciferol (vitamin D3) 125 250 mcg PO DAILY 07/29/20 01/16/23 History mcg (5,000 unit) tablet multivitamin,qu-qifz-gpahleqm 1 tablet PO DAILY 07/29/20 01/16/23 History tamoxifen 20 mg tablet 20 mg PO DAILY 01/05/21 01/08/23 History indapamide 1.25 mg tablet See Rx Instructions .Route 06/20/22 01/08/23 Rx .COMPLEX #90 tabs pantoprazole 40 mg tablet,delayed See Rx Instructions .Route 06/20/22 01/08/23 Rx release .COMPLEX #90 tabs alendronate 70 mg tablet See Rx Instructions .Route 09/04/22 01/08/23 Rx .COMPLEX #12 tabs levothyroxine 75 mcg tablet See Rx Instructions .Route 09/18/22 01/16/23 Rx .COMPLEX #90 tabs losartan 50 mg tablet See Rx Instructions .Route 09/18/22 01/08/23 Rx .COMPLEX #90 tabs Allergies Allergy/AdvReac Type Severity Reaction Status Date / Time No Known Allergies Allergy Verified 01/16/23 06:59 Vital Signs Vital Signs - 24 hr 01/16/23 06:15 Temperature 98.1 F Pulse Rate 87 Respiratory Rate 16 Blood Pressure 154/79 H Pulse Oximetry 94 Oxygen Delivery Room Air Exam Const: Orientati
--- NOTE | 2023-01-16 07:08 | WPDHPUPDATE1 ---
History and Physical Update Update Date/Time: 01/16/23 07:08 History and Physical has been reviewed, including an updated exam of the patient. There are NO changes in the patient's condition. Risks, benefits, and alternatives have been discussed and questions answered. Patient agrees to proceed with procedure.
[2023-01-16] MEDS: ceFAZolin 2 GM/D5W 50 ML 2 GM/50 ML BAG IVPB (07:28)
[2023-01-16] MEDS: LIDOCAINE HCL 1% LOCAL INJ 20 ML VIAL INFILTRATE (07:40)
--- NOTE | 2023-01-16 07:49 | P.OP_ITS ---
Procedure Note - Detailed Date of Procedure 01/16/23 Pre-op Diagnosis post menopausal bleeding, thickened endometrial stripe Post-op Diagnosis Same Procedure Performed Hysteroscopy with removal of endometrial lesion and curretage. Surgeon Osvaldo Taylor MD Anesthesia MAC and Local Indications Patient with post menopausal bleeding and thickened endometrial stripe. Findings Uterus sound to 7.5 cm. The uterine cavity there were 2 polyps and there was an adipose appearing spot on anterior near fundal cavity that was removed shaved and removed, the rest of the cavity appeared atrophic. Description of Procedure After form consent was obtained patient was taken to the operating room and adequate IV sedation was administered. She was placed in lithotomy position and prepped and draped in sterile fashion. Attention was turned to the vagina. Speculum inserted. Single-tooth tenaculum placed on anterior lip of the cervix. 1% lidocaine was injected at the cervical vaginal interface at 2, 5, 8 and 10 position. The uterine sound was inserted and sounded to 7.5 cm. Hydrodilation was used to dilate the cervial canal and enter the uterine cavity. Polyps visualized at lower uterus and mid uterus and adipose deposits noted anterior. The aveta instrument was used to remove all lesions completely. The rest of the cavity atrophic. A curettage was then performed. Minimal tissue. The single- tooth tenaculum was removed. Hemostasis was noted. The speculum was removed. The patient tolerated procedure well. Estimated Blood Loss 5 Drains No Packing No Pathology Yes (uterine polyps and endometrial curettings.) Complications No immediate complications Condition Stable Disposition PACU [facility] Billing Surgery - Charge Forward: Surgery Billing
[2023-01-16 07:53] VITALS: BP 109/62; PULSE 74; RESP 16; O2SAT 97
[2023-01-16 08:20] VITALS: BP 142/63; PULSE 67; RESP 16
[2023-01-16 08:48] VITALS: BP 132/66; PULSE 64; RESP 16
== END 2023-01-16 08:57 | disposition home or self-care (01) ==
PROVIDERS: PCP Emergency Medicine; Visit Provider Obstetrics & Gynecology
PROC: 0U5B8ZZ Destruction of Endometrium, Via Natural or Artificial Opening Endoscopic (ICD-10-PCS; CPT 58563; principal; 2023-01-16 07:30)
DX: N95.0 Postmenopausal bleeding (principal); N85.8 Other specified noninflammatory disorders of uterus; K21.9 Gastro-esophageal reflux disease without esophagitis; Z86.010 Personal history of colon polyps; E78.00 Pure hypercholesterolemia, unspecified; I10 Essential (primary) hypertension; E03.9 Hypothyroidism, unspecified; Z98.890 Other specified postprocedural states; E66.9 Obesity, unspecified; Z68.32 Body mass index [BMI] 32.0-32.9, adult; Z79.810 Long term (current) use of selective estrogen receptor modulators (SERMs); Z85.3 Personal history of malignant neoplasm of breast; Z80.3 Family history of malignant neoplasm of breast
CPT/HCPCS: 58558; 88305; A9270; J0690; J2405; J2704; J3010; J7120

== ENCOUNTER 2023-04-17 15:58 | Outpatient (CLI) | payer MEDICARE, BC, SELFPAY ==
--- NOTE | ~2023-04-17 | XR_ITS ---
Left Hand Technique: PA, oblique, and lateral views were obtained. Clinical History: Pain Findings: No acute fracture or dislocation is seen. Osseous alignment is anatomic. There is advanced degenerative change of the first CMC joint. Soft tissues are unremarkable. Impression: And advanced degenerative change of the first CMC joint. Reviewed, dictated and finalized at location . ICAL PARTNER Impression: And advanced degenerative change of the first CMC joint.
--- NOTE | ~2023-04-17 | XR_ITS ---
Right Hand Technique: PA, oblique, and lateral views were obtained. Clinical History: Osteoarthritis Findings: No acute fracture or dislocation is seen. Osseous alignment is anatomic. There is moderate degenerative change of the first CMC joint. Soft tissues are unremarkable. Impression: Moderate degenerative change of the first CMC joint. Reviewed, dictated and finalized at [facility]. DESK ENGINEER Impression: Moderate degenerative change of the first CMC joint.
== END 2023-04-17 15:59 | disposition home or self-care (01) ==
PROVIDERS: PCP Emergency Medicine; Visit Provider Physician Assistant Surgical
DX: M18.0 Bilateral primary osteoarthritis of first carpometacarpal joints (principal); M67.432 Ganglion, left wrist
CPT/HCPCS: 73130

== ENCOUNTER 2023-06-14 13:56 | Outpatient (CLI) | payer MEDICARE, BC, SELFPAY ==
--- NOTE | ~2023-06-14 | MM_ITS ---
EXAMINATION: MM screening [facility] BI w sofia HISTORY: Screening TECHNIQUE: Craniocaudal and mediolateral oblique 3-D tomosynthesis images were obtained and synthetic 2-D images were generated. CAD analysis was submitted and interpreted. COMPARISON: Comparison to multiple prior studies sequentially, with oldest reviewed study dated 06/07. BREAST PARENCHYMAL COMPOSITION: Not dense: There are scattered areas of fibroglandular density. FINDINGS: Stable architectural distortion of the left breast, consistent with previous lumpectomy and radiation therapy. There is no evidence of suspicious mass, calcification, or architectural distorti on to suggest malignancy in either breast. There has been no suspicious interval change. IMPRESSION: 1. No mammographic evidence of malignancy. 2. Recommend routine screening mammography in one year. BI-RADS Category 2: Benign finding(s). Reviewed, dictated and finalized at location B.
== END 2023-06-14 13:57 | disposition home or self-care (01) ==
LOC: ANHIMG 13:58
PROVIDERS: PCP Emergency Medicine; Visit Provider Internal Medicine Hematology & Oncology
DX: Z12.31 Encounter for screening mammogram for malignant neoplasm of breast (principal)
CPT/HCPCS: 77063; 77067

== ENCOUNTER 2023-06-18 11:23 | Outpatient (CLI) | payer MEDICARE, BC, SELFPAY ==
[2023-06-18 11:43] LABS: Basophils Absolute Auto 0.1 K/mm3 (0.0-0.1); Eosinophils Absolute Auto 0.1 K/mm3 (0-0.3); Eosinophils Percent Auto 2.3 % (0-4.4); Hematocrit 42.7 % (37.0-47.0); Hemoglobin 14.3 g/dL (12.0-15.0); Immature Granulocyte Absolute 0.02 K/mm3 (0.00-0.031); Immature Granulocyte Percent A 0.3 % (0-0.5); Lymphocytes Absolute Auto 1.87 K/mm3 (0.9-3.2); Lymphocytes Percent Auto 30.6 % (18.3-44.2); Mean Corpuscular HGB Conc 33.5 g/dl (32-36); Mean Corpuscular Hemoglobin 30.6 pg (26-34); Mean Corpuscular Volume 91.4 fl (80-100); Mean Platelet Volume 8.7 fl (7.4-10.4); Monocytes Absolute Auto 0.4 K/mm3 (0.1-0.6); Monocytes Percent Auto 6.9 % (2.6-8.5); Neutrophils Absolute Auto 3.6 K/mm3 (1.3-6.7); Neutrophils Percent Auto 58.9 % (45.5-73.1); Platelet Count Result 223 k/mm3 (150-375); Red Blood Count 4.67 M/mm3 (4.2-5.4); Red Cell Distribution Width 12.3 % (11.5-14.5); White Blood Count 6.1 K/mm3 (4.5-10.0)
[2023-06-18 16:56] LABS: Alanine Aminotransferase 22 U/L (6-35); Albumin Level 4.5 g/dL (3.5-5.1); Alkaline Phosphatase 43 U/L (38-126); Anion Gap 7 mmol/L (4-12); Aspartate Amino Transferase 30 U/L (14-36); Bilirubin,Total 0.8 mg/dL (0.2-1.3); Blood Urea Nitrogen 16 mg/dL (7-17); Calcium 9.8 mg/dL (8.4-10.2); Carbon Dioxide 30 mmol/L (22-30); Chloride 104 mmol/L (98-107); Cholesterol 242 mg/dL (0-200); Estimated Glomerular Filt Rate > 60; Glucose 101 mg/dL (65-110); HDL Direct 84 mg/dL; Potassium 3.5 mmol/L (3.4-5.0); Sodium 141 mmol/L (137-145); Triglycerides 137 mg/dL (<150)
[2023-06-18 17:09] LABS: LDL Cholesterol Direct 131 mg/dL
[2023-06-18 17:31] LABS: Thyroid Stimulating Hormone 0.403 uIU/mL (0.465-4.680)
[2023-06-20 02:54] LABS: CA 15-3 23 U/mL (<32)
[2023-06-22 13:33] LABS: Vitamin D 1,25 (OH)2 Total 55 pg/mL (18-72); Vitamin D2 1,25 (OH)2 <8 pg/mL; Vitamin D3 1,25 (OH)2 55 pg/mL
== END 2023-06-18 11:24 | disposition home or self-care (01) ==
LOC: ANHLAB 11:26
PROVIDERS: PCP Emergency Medicine; Visit Provider Internal Medicine Hematology & Oncology
DX: C50.912 Malignant neoplasm of unspecified site of left female breast (principal); Z17.0 Estrogen receptor positive status [ER+]; I10 Essential (primary) hypertension; E55.9 Vitamin D deficiency, unspecified
CPT/HCPCS: 36415; 80053; 80061; 82652; 84443; 85025; 86300

== ENCOUNTER 2023-07-04 10:42 | Outpatient (CLI) | payer MEDICARE, BC, SELFPAY | END 2023-07-04 10:43 | disposition home or self-care (01) | LOC: ANHLAB 10:44 | PROVIDERS: PCP Emergency Medicine; Visit Provider Emergency Medicine | DX: E03.9 Hypothyroidism, unspecified (principal) | CPT/HCPCS: 36415; 84443 ==

== ENCOUNTER 2023-12-17 10:24 | Outpatient (CLI) | payer MEDICARE, BC, SELFPAY ==
[2023-12-17 11:20] LABS: Alanine Aminotransferase 17 U/L (6-35); Albumin Level 4.1 g/dL (3.5-5.1); Alkaline Phosphatase 40 U/L (38-126); Anion Gap 8 mmol/L (4-12); Aspartate Amino Transferase 21 U/L (14-36); Bilirubin,Total 0.6 mg/dL (0.2-1.3); Blood Urea Nitrogen 17 mg/dL (7-17); Carbon Dioxide 27 mmol/L (22-30); Chloride 104 mmol/L (98-107); Cholesterol 187 mg/dL (0-200); Estimated Glomerular Filt Rate > 60; Glucose 94 mg/dL (65-110); HDL Direct 72 mg/dL; Potassium 3.5 mmol/L (3.4-5.0); Sodium 139 mmol/L (137-145); Triglycerides 113 mg/dL (<150)
[2023-12-17 11:31] LABS: LDL Cholesterol Direct 94 mg/dL
[2023-12-17 11:49] LABS: Thyroid Stimulating Hormone 0.769 uIU/mL (0.465-4.680)
[2023-12-17 12:35] LABS: Vitamin D 25 Hydroxy 64.7 ng/mL
== END 2023-12-17 10:25 | disposition home or self-care (01) ==
LOC: ANHLAB 10:28
PROVIDERS: PCP Emergency Medicine; Visit Provider Emergency Medicine
DX: E55.9 Vitamin D deficiency, unspecified (principal); E03.9 Hypothyroidism, unspecified; E78.2 Mixed hyperlipidemia
CPT/HCPCS: 36415; 80053; 80061; 82306; 84443

== ENCOUNTER 2023-12-26 11:44 | Outpatient (CLI) | payer MEDICARE, BC, SELFPAY ==
--- NOTE | ~2023-12-26 | XR_ITS ---
XR hip LT min 2V Ordering provider: Braxton Young MD History: . M25.552 - Pain in left hip, NKI X 1 MONTH . Comparison: August 12, 2018 FINDINGS: BONES: No acute fracture or dislocation. HIP JOINT SPACES: Normal. PUBIC SYMPHYSIS: Normal. SOFT TISSUES: Normal. IMPRESSION: No acute osseous abnormality in the left hip. Reviewed, dictated and finalized at location A.
== END 2023-12-26 11:45 | disposition home or self-care (01) ==
PROVIDERS: PCP Emergency Medicine; Visit Provider Emergency Medicine
DX: M25.552 Pain in left hip (principal)
CPT/HCPCS: 73502

== ENCOUNTER 2024-01-02 09:29 | Outpatient (CLI) | payer MEDICARE, BC, SELFPAY ==
[2024-01-02 09:46] LABS: Basophils Absolute Auto 0.1 K/mm3 (0.0-0.1); Basophils Percent Auto 0.9 % (0.2-1.2); Eosinophils Absolute Auto 0.2 K/mm3 (0-0.3); Eosinophils Percent Auto 3.5 % (0-4.4); Hematocrit 42.4 % (37.0-47.0); Hemoglobin 14.2 g/dL (12.0-15.0); Immature Granulocyte Absolute 0.03 K/mm3 (0.00-0.031); Immature Granulocyte Percent A 0.5 % (0-0.5); Lymphocytes Absolute Auto 1.84 K/mm3 (0.9-3.2); Lymphocytes Percent Auto 28.2 % (18.3-44.2); Mean Corpuscular HGB Conc 33.5 g/dl (32-36); Mean Corpuscular Hemoglobin 30.3 pg (26-34); Mean Corpuscular Volume 90.6 fl (80-100); Mean Platelet Volume 9.1 fl (7.4-10.4); Monocytes Absolute Auto 0.5 K/mm3 (0.1-0.6); Monocytes Percent Auto 7.2 % (2.6-8.5); Neutrophils Absolute Auto 3.9 K/mm3 (1.3-6.7); Neutrophils Percent Auto 59.7 % (45.5-73.1); Platelet Count Result 218 k/mm3 (150-375); Red Blood Count 4.68 M/mm3 (4.2-5.4); Red Cell Distribution Width 12.3 % (11.5-14.5); White Blood Count 6.5 K/mm3 (4.5-10.0)
[2024-01-02 10:09] LABS: Alanine Aminotransferase 20 U/L (6-35); Albumin Level 4.3 g/dL (3.5-5.1); Alkaline Phosphatase 40 U/L (38-126); Anion Gap 10 mmol/L (4-12); Aspartate Amino Transferase 27 U/L (14-36); Bilirubin,Total 0.7 mg/dL (0.2-1.3); Blood Urea Nitrogen 20 mg/dL (7-17); Calcium 9.7 mg/dL (8.4-10.2); Carbon Dioxide 31 mmol/L (22-30); Chloride 101 mmol/L (98-107); Estimated Glomerular Filt Rate > 60; Glucose 107 mg/dL (65-110); Potassium 3.6 mmol/L (3.4-5.0); Sodium 142 mmol/L (137-145)
[2024-01-03 12:17] LABS: CA 15-3 24 U/mL (<32)
== END 2024-01-02 09:30 | disposition home or self-care (01) ==
PROVIDERS: PCP Emergency Medicine; Visit Provider Internal Medicine Hematology & Oncology
DX: C50.912 Malignant neoplasm of unspecified site of left female breast (principal); Z17.0 Estrogen receptor positive status [ER+]
CPT/HCPCS: 36415; 80053; 85025; 86300

== ENCOUNTER 2024-05-18 16:48 | Outpatient (CLI) | payer MEDICARE, BC, SELFPAY ==
[2024-05-18 18:12] LABS: Hemoglobin A1C 5.6 % (<5.7)
--- OUTSIDE RECORDS SUMMARY | 2024-05-18 18:50 | XMS_ITS | Clinical Summary ---
Author Organization [facility] Albina Johnson Address [address] [place] [address] Care Team Providers Care Loan Approver Name Role Phone Braxton Young MD Primary Care Provider + [phone] Allergies No known active allergies Medications simvastatin (ZOCOR) 10 mg tablet Take 10 mg by mouth. Active potassium chloride (KLOR-CON) 10 mEq Extended Release tablet Take 10 mEq by mouth. Active pantoprazole (PROTONIX) 40 mg Tablet, Delayed Release (E.C.) Take 40 mg by mouth daily. Active levothyroxine 75 mcg tablet Take 75 mcg by mouth daily in the morning. Active cholecalciferol , Vitamin D3, 125 mcg (5,000 unit) Capsule Take 5,000 Units by mouth daily. Active ALPRAZolam (XANAX) 0.25 mg tablet Take 0.25 mg by mouth nightly as needed for Anxiety. Active alendronate (FOSAMAX) 70 mg tablet Take 70 mg by mouth every 7 days. empty stomach before other meds,with 8oz of water, stay upright 30 min Active indapamide (LOZOL) 1.25 mg tablet Take 1.25 mg by mouth daily. 2 Active losartan (COZAAR) 50 mg tablet 2 Active BinaxNOW COVID-19 Ag Self Test Kit TEST DIRECTED TODAY 2 Active Paxlovid, EUA, 300 mg (150 mg x 2)-100 mg oral pack TK 2 NIRMATRELVIR TS AND 1 RITONAVIR T TOGETHER PO BID FOR 5 DAYS BID FOR 5 DAYS 2 Active tamoxifen (NOLVADEX) 20 mg tablet TAKE 1 TABLET(20 MG) BY MOUTH DAILY 90 Tablet 3 5 Active Active Problems Problem Noted Date Diagnosed Date Malignant neoplasm of upper- inner quadrant of left breast in female, estrogen receptor positive 10/18/2020 Encounters Date Type Department Care Team Description 05/13/2024 External Device Data STL ABSTRACTION Provider, Abstract 05/13/2024 External Device Data STL ABSTRACTION Provider, Abstract 05/02/2024 External Device Data STL ABSTRACTION Provider, Abstract 05/01/2024 External Device Data STL ABSTRACTION Provider, Abstract 04/15/2024 External Device Data STL ABSTRACTION Provider, Abstract 03/24/2024 External Device Data STL ABSTRACTION Provider, Abstract 03/12/2024 Refill [facility] Oncology and Hematology [facility] [address] [place] [address] Lorne Jacobo MD from Last 3 Months Family History Medical History Relation Name Comments Cancer Mother Relation Name Status Comments Daughter Alive Father Mother Sister Alive Social History Tobacco Use Types Packs/Day Years Used Date Smoking Tobacco: Never Smokeless Tobacco: Never Tobacco Cessation:Counseling Given: Not Answered Alcohol Use Standard Drinks/Week Comments Never 0 (1 standard drink = 0.6 oz pur e alcohol) Comments No Sex and Gender Information Value Date Recorded Sex Assigned at Not on file Legal Sex Female 3:49 PM CDT Gender Identity Not on file Sexual Orientation Not on file Last Filed Vital Signs Vital Sign Reading Time Taken Comments Blood Pressure 131/74 01/10/2024 2:24 PM IMAGE ASSEMBLER Pulse 91 01/10/2024 2:24 PM IMAGE ASSEMBLER Temperature 36.6 C (97.8 F) 01/10/2024 2:24 PM IMAGE ASSEMBLER Respiratory Rate 16 01/10/2024 2:24 PM IMAGE ASSEMBLER Oxygen Saturation 96% 06/26/2023 10: 14 AM CDT Inhaled Oxygen Concentration - - Weight 87.5 kg (192 lb 12.8 oz) 01/10/2024 2:24 PM IMAGE ASSEMBLER Height 162.6 cm (5' 4 ) 12/04/2021 9:44 AM CDT Body Mass Index 33.09 12/04/2021 9:44 AM CDT Plan of Treatment Upcoming Encounters Date Type Department Care Team (Late st Contact Info) Description 07/10/2024 10:30 AM CDT Office Visit [facility] Oncology and Hematology - [address] [facility] [address] [place] [address] Lorne Jacobo MD [address] [facility] [address] [place] [address] Health Maintenance Due Date Last Done Comments DTAP/TDAP/TD VACCINES (1 - Tdap) 1964 Traditional Medicare (ACO) A nnual Wellness Visit 1964 PNEUMOCOCCAL VACCINE 50+ YEA RS (1 of 1 - PCV) 10/07/1995 ZOSTER VACCINE (1 of 2) 10/07/1995 RSV VACCINE (60+ or ) (1 - 1-dose 75+ series) 2020 INFLUENZA VACCINE (#1) 2023 COLORECTAL SCREENING Discontinued 08/24/2022, 08/24/2022, 03/20/2017, Additional history exists Colorectal Cancer Screening Discontinued OSTEOPOROSIS SCREENING Completed , 12/17/2018, 05/09/2015 FIT-DNA Q 3 years Discontinued FIT/FOBT Q 1 year Discontinued Flex Sig/CT Colonography Q 5 years Discontinued Insurance MEDICARE PART A AND B [facility] MEDICARE PART A AND B [facility] FEDERAL Care Teams Loan Approver Relationship Specialty Start Date End Date Braxton Young MD [address] [place] [address] PCP - General Internal Medicine 10/18/20
--- OUTSIDE RECORDS SUMMARY | 2024-05-18 18:50 | XMS_ITS | Clinical Summary ---
Author Organization [facility] Address [address] [address] Phone Care Team Providers Care Headhunter Name Role Phone Braxton Young MD Primary Care Provider [phone] Allergies No known active allergies Medications alendronate (FOSAMAX) 70 MG Tablet 01/05/2017 Active Cholecalciferol (VITAMIN D3) 2000 UNIT Capsule TK 1 C PO QD 1 02/13/2017 Active lisinopril (PRINIVIL, ZESTRIL) 20 MG Tablet 01/18/2017 Active hydroCHLOROthiaz joanne 12.5 MG Tablet TK 1 T PO QD 2 03/05/2017 Active indapamide (LOZOL) 1.25 MG Tablet 01/16/2017 Active levothyroxine (SYNTHROID) 88 MCG Tablet 01/04/2017 Active Biotin 1000 MCG Tablet Take by mouth daily. Active Aspirin 81 MG Tablet Take 81 mg by mouth daily. Active simvastatin (ZOCOR) 10 MG Tablet Take 10 mg by mouth every evening. Active Family History Medical History Relation Name Comments Hypertension Father Breast Cancer Maternal Grandmother Breast Cancer Mother Relation Name Status Comments Father Maternal Grandmother Mother Social History Tobacco Use Types Packs/Day Years Used Date Smoking Tobacco: Never Smokeless Tobacco: Never Alcohol Use Standard Drinks/Week Comments No 0 (1 standard drink = 0.6 oz pur e alcohol) Comments No Sex and Gender Information Value Date Recorded Sex Assigned at Not on file Legal Sex Female 9:12 AM MEDIA PRODUCER Gender Identity Not on file Sexual Orientation Not on file Last Filed Vital Signs Vital Sign Reading Time Taken Comments Blood Pressure 118/76 03/22/2017 9:21 AM MEDIA PRODUCER Pulse 76 03/22/2017 9:21 AM MEDIA PRODUCER Temperature 36.8 C (98.2 F) 03/22/2017 9:21 AM MEDIA PRODUCER Respiratory Rate 18 03/22/2017 9:21 AM MEDIA PRODUCER Oxygen Saturation 95% 03/22/2017 9:21 AM MEDIA PRODUCER Inhaled Oxygen Concentration - - Weight 76.2 kg (168 lb) 03/22/2017 9:21 AM MEDIA PRODUCER Height 165.1 cm (5' 5 ) 03/22/2017 9:21 AM MEDIA PRODUCER Body Mass Index 27.96 03/22/2017 9:21 AM MEDIA PRODUCER Plan of Treatment Health Maintenance Due Date Last Done Comments Hepatitis C Virus (HCV) Screening 1945 TdaP Immunization 1945 Pneumococcal Immunization (50+ years) (1 of 1 - PCV) 10/07/1995 Zoster Immunization (1 of 2) 10/07/1995 Respiratory Syncytial Virus (RSV) Immunization (Adult) (1 - 1-dose 75+ series) 2020 Influenza Immunization (#1) 2023 SARS-COV-2 Immunization ( - 2023- season) 2023 Colonoscopy High Risk Discontinued 03/20/2017 , 04/25/2011, 09/25/2006, Additional history exists Colonoscopy Discontinued 03/20/2017, 03/29, 09/25/2006, Additional history exists Colorectal Cancer Screening Discontinued Cologuard Discontinued Hepatitis B Immunization Aged Out No longer eligible based on patient's age to complete this topic Immunochemical Fecal Occult Blood Discontinued Meningococcal Immunization (ACWY) Aged Out No longer eligible based on patient's age to complete this topic Rotavirus Immunization Aged Out No lo nger eligible based on patient's age to complete this topic Procedures Procedure Name Priority Date/Time Associated Diagnosis Comments COLONOSCOPY Routine 03/20/2017 from Last 3 Months or Most Recently Relevant to Health Maintenance Results * COLONOSCOPY (03/20/2017) Marvin Germain DO PROCEDURE/MINOR SURGICAL ORDERA BLES Final Result from Last 3 Months or Most Recently Relevant to Health Maintenance Insurance MEDICARE [facility] Care Teams Headhunter Relationship Specialty Start Date End Date Braxton Young MD [address] [place] [address] PCP - General Internal Medicine 04/25/16
== END 2024-05-18 16:49 | disposition home or self-care (01) ==
PROVIDERS: PCP Emergency Medicine
DX: Z13.1 Encounter for screening for diabetes mellitus (principal); Z13.29 Encounter for screening for other suspected endocrine disorder; Z68.34 Body mass index [BMI] 34.0-34.9, adult
CPT/HCPCS: 36415; 83036

== ENCOUNTER 2024-06-16 10:18 | Outpatient (CLI) | payer MEDICARE, BC, SELFPAY ==
[2024-06-16 10:45] LABS: Alanine Aminotransferase 23 U/L (6-35); Albumin Level 4.1 g/dL (3.5-5.1); Alkaline Phosphatase 41 U/L (38-126); Anion Gap 9 mmol/L (4-12); Aspartate Amino Transferase 27 U/L (14-36); Bilirubin,Total 0.7 mg/dL (0.2-1.3); Blood Urea Nitrogen 16 mg/dL (7-17); Calcium 9.1 mg/dL (8.4-10.2); Carbon Dioxide 26 mmol/L (22-30); Chloride 105 mmol/L (98-107); Cholesterol 202 mg/dL (0-200); Estimated Glomerular Filt Rate > 60; Glucose 93 mg/dL (65-110); HDL Direct 63 mg/dL; Potassium 3.5 mmol/L (3.4-5.0); Sodium 140 mmol/L (137-145); Triglycerides 162 mg/dL (<150)
[2024-06-16 10:56] LABS: LDL Cholesterol Direct 97 mg/dL
[2024-06-16 11:10] LABS: Vitamin D 25 Hydroxy 76.4 ng/mL
[2024-06-16 11:15] LABS: Thyroid Stimulating Hormone 0.409 uIU/mL (0.465-4.680)
--- OUTSIDE RECORDS SUMMARY | 2024-06-16 11:43 | XMS_ITS | Clinical Summary ---
Author Organization [facility] Address [address] [address] Phone Care Team Providers Care Staffing Mgr Name Role Phone Braxton Young MD Primary Care Provider [phone] Allergies No known active allergies Medications alendronate [...] on file Legal Sex Female 9:12 AM DRYING FRAME OPERATOR Gender Identity Not on file Sexual Orientation Not on file Last Filed Vital Signs Vital Sign Reading Time Taken Comments Blood Pressure 118/76 03/22/2017 9:21 AM DRYING FRAME OPERATOR Pulse 76 03/22/2017 9:21 AM DRYING FRAME OPERATOR Temperature 36.8 C (98.2 F) 03/22/2017 9:21 AM DRYING FRAME OPERATOR Respiratory Rate 18 03/22/2017 9:21 AM DRYING FRAME OPERATOR Oxygen Saturation 95% 03/22/2017 9:21 AM DRYING FRAME OPERATOR Inhaled Oxygen Concentration - - Weight 76.2 kg (168 lb) 03/22/2017 9:21 AM DRYING FRAME OPERATOR Height 165.1 cm (5' 5 ) 03/22/2017 9:21 AM DRYING FRAME OPERATOR Body Mass Index 27.96 03/22/2017 9:21 AM DRYING FRAME OPERATOR Plan of Treatment Health Maintenance Due Date [...] Recently Relevant to Health Maintenance Insurance MEDICARE [facility] Care Teams Staffing Mgr Relationship Specialty Start Date End Date Braxton Young MD [address] [place] [address] PCP - General Internal Medicine 04/25/16
--- OUTSIDE RECORDS SUMMARY | 2024-06-16 11:43 | XMS_ITS | Clinical Summary ---
Author Organization [facility] Albina Johnson Address [address] [place] [address] Care Team Providers Care Platform Material Handling Supervisor Name Role Phone Braxton Young MD Primary Care Provider + [phone] Allergies No known active allergies Medications simvastatin [...] External Device Data STL ABSTRACTION Provider, Abstract from Last 3 Months Family History Medical [...] Comments Blood Pressure 131/74 01/10/2024 2:24 PM ROLLOFF TRUCK DRIVER Pulse 91 01/10/2024 2:24 PM ROLLOFF TRUCK DRIVER Temperature 36.6 C (97.8 F) 01/10/2024 2:24 PM ROLLOFF TRUCK DRIVER Respiratory Rate 16 01/10/2024 2:24 PM ROLLOFF TRUCK DRIVER Oxygen Saturation 96% 06/26/2023 10: 14 AM CDT Inhaled Oxygen Concentration - - Weight 87.5 kg (192 lb 12.8 oz) 01/10/2024 2:24 PM ROLLOFF TRUCK DRIVER Height 162.6 cm (5' 4 ) 12/04/2021 9:44 AM CDT Body Mass Index 33.09 12/04/2021 9:44 AM CDT Plan of Treatment Upcoming Encounters Date Type Department Care Team (Late st Contact Info) Description 07/10/2024 10:30 AM CDT Office Visit [facility] Oncology and Hematology - Dev [address] [facility] [address] [place] [address] Lorne Jacobo MD [address] [facility] [address] [place] [address] Health Maintenance Due Date Last Done Comments DTAP/TDAP/TD VACCINES (1 - Tdap) 1964 PNEUMOCOCCAL VACCINE 50+ YEA RS (1 of 1 - PCV) 10/07/1995 ZOSTER VACCINE (1 of 2) 10/07/1995 RSV VACCINE (60+ or ) (1 - 1-dose 75+ series) 2020 INFLUENZA VACCINE (#1) 2023 OSTEOPOROSIS SCREENING 11/28/2027 , 12/17/2018, 05/09/2015 COLORECTAL SCREENING Discontinued 08/24/2022, 08/24/2022, 03/20/2017, Additional history exists Colorectal Cancer Screening Discontinued FIT-DNA Q 3 years Discontinued FIT/FOBT Q 1 year Discontinued Flex Sig/CT Colonography Q 5 years Discontinued Insurance MEDICARE PART A AND B [facility] MEDICARE PART A AND B [facility] Care Teams Platform Material Handling Supervisor Relationship Specialty Start Date End Date Braxton Young MD [address] [place] [id number] PCP - General Internal Medicine 10/18/20
== END 2024-06-16 10:19 | disposition home or self-care (01) ==
PROVIDERS: PCP Emergency Medicine; Visit Provider Emergency Medicine
DX: E78.2 Mixed hyperlipidemia (principal); E55.9 Vitamin D deficiency, unspecified; E03.9 Hypothyroidism, unspecified
CPT/HCPCS: 36415; 80053; 80061; 82306; 84443

== ENCOUNTER 2024-06-23 08:59 | Outpatient (CLI) | payer MEDICARE, BC, SELFPAY ==
--- NOTE | ~2024-06-23 | MM_ITS ---
EXAMINATION: MM screening anh BI w sofia HISTORY: Screening mammogram, family history of breast cancer in her mother. TECHNIQUE: Craniocaudal and mediolateral oblique 3-D tomosynthesis images were obtained and synthetic 2-D images were generated. CAD analysis was submitted and interpreted. COMPARISON: 06/14/2023, 06/11/2022, 06/07/2021 BREAST PARENCHYMAL COMPOSITION:Not Dense. There are scattered areas of fibroglandular density. FINDINGS: Stable postlumpectomy change at the posterior upper, inner left breast. No suspicious mass, calcification, or architectural distortion are identified in either breast to suggest malignancy. Th ere has been no suspicious interval change. IMPRESSION: No mammographic evidence of malignancy. Recommend routine screening mammography in one year. BI-RADS Category 2: Benign finding(s). Reviewed, dictated and finalized at location .
--- OUTSIDE RECORDS SUMMARY | 2024-06-23 09:35 | XMS_ITS | Clinical Summary ---
Author Organization [facility] Albina Johnson Address [address] [place] [address] Care Team Providers Care Manager Field Sales Name Role Phone Braxton Young MD Primary Care Provider + [phone] Allergies No known active allergies Medications simvastatin [...] Comments Blood Pressure 131/74 01/10/2024 2:24 PM ROUGH PATCHER Pulse 91 01/10/2024 2:24 PM ROUGH PATCHER Temperature 36.6 C (97.8 F) 01/10/2024 2:24 PM ROUGH PATCHER Respiratory Rate 16 01/10/2024 2:24 PM ROUGH PATCHER Oxygen Saturation 96% 06/26/2023 10: 14 AM CDT Inhaled Oxygen Concentration - - Weight 87.5 kg (192 lb 12.8 oz) 01/10/2024 2:24 PM ROUGH PATCHER Height 162.6 cm (5' 4 ) 12/04/2021 9:44 AM CDT Body Mass Index 33.09 12/04/2021 9:44 AM CDT Plan of Treatment Upcoming Encounters Date Type Department Care Team (Late st Contact Info) Description 07/10/2024 10:30 AM CDT Office Visit [facility] Oncology and Hematology - [place] [address] [place] [address] Lorne Jacobo MD [address] [facility] [address] [place] [address] Health Maintenance Due Date Last [...] Discontinued Insurance MEDICARE PART A AND B [facility] MEDICARE PART A AND B [facility] Care Teams Manager Field Sales Relationship Specialty Start Date End Date Braxton Young MD [address] [place] [id number] PCP - General Internal Medicine 10/18/20
--- OUTSIDE RECORDS SUMMARY | 2024-06-23 09:35 | XMS_ITS | Clinical Summary ---
Author Organization [facility] Address [address] [address] Phone Care Team Providers Care Box Puller Name Role Phone Braxton Young MD Primary Care Provider [phone] Allergies No known active allergies Medications alendronate [...] on file Legal Sex Female 9:12 AM PARALEGAL LEGAL SECRETARY Gender Identity Not on file Sexual Orientation Not on file Last Filed Vital Signs Vital Sign Reading Time Taken Comments Blood Pressure 118/76 03/22/2017 9:21 AM PARALEGAL LEGAL SECRETARY Pulse 76 03/22/2017 9:21 AM PARALEGAL LEGAL SECRETARY Temperature 36.8 C (98.2 F) 03/22/2017 9:21 AM PARALEGAL LEGAL SECRETARY Respiratory Rate 18 03/22/2017 9:21 AM PARALEGAL LEGAL SECRETARY Oxygen Saturation 95% 03/22/2017 9:21 AM PARALEGAL LEGAL SECRETARY Inhaled Oxygen Concentration - - Weight 76.2 kg (168 lb) 03/22/2017 9:21 AM PARALEGAL LEGAL SECRETARY Height 165.1 cm (5' 5 ) 03/22/2017 9:21 AM PARALEGAL LEGAL SECRETARY Body Mass Index 27.96 03/22/2017 9:21 AM PARALEGAL LEGAL SECRETARY Plan of Treatment Health Maintenance Due Date [...] Recently Relevant to Health Maintenance Insurance MEDICARE [facility] Care Teams Box Puller Relationship Specialty Start Date End Date Braxton Young MD [address] [place] [address] PCP - General Internal Medicine 04/25/16
== END 2024-06-23 09:00 | disposition home or self-care (01) ==
PROVIDERS: PCP Emergency Medicine; Visit Provider Internal Medicine Hematology & Oncology
DX: Z12.31 Encounter for screening mammogram for malignant neoplasm of breast (principal)
CPT/HCPCS: 77063; 77067

== ENCOUNTER 2024-06-23 11:20 | Outpatient (CLI) | payer MEDICARE, BC, SELFPAY ==
--- NOTE | ~2024-06-23 | XR_ITS ---
EXAM: XR hip LT min 2V DATE: 06/23/2024 11:41 HISTORY: M25.552 - Pain in left hip, no injury . COMPARISON: 12/26/2023. FINDINGS: Lumbar degenerative disc disease. Scattered pelvic and hip enthesopathy. Mild superior hip joint space narrowing and femoral head osteophytosis. Pelvic phleboliths. No lytic or blastic lesion . No fracture or dislocation IMPRESSION: Mild left hip osteoarthritis. Reviewed, dictated and finalized at location K.
--- OUTSIDE RECORDS SUMMARY | 2024-06-23 12:50 | XMS_ITS | Encounter Summary ---
Author Organization [facility] Address [address] [place] [address] Care Team Providers Care Bakery Assistant Name Role Phone Braxton Young MD Primary Care Provider [phone] Encounter Details Date Type Department Care Team (Late Contact Info) Description 06/23/2024 Orders Only [facility] Oncology and Hematology - [address] [place] [address] Lorne Jacobo MD [address] [place] [address] Social History Tobacco Use Types Packs/Day Years Used Date Smoking Tobacco: Never Smokeless Tobacco: Never Alcohol Use Standard Drinks/Week Comments Never 0 (1 standard drink = 0.6 oz pur e alcohol) Comments No Sex and Gender Information Value Date Recorded Sex Assigned at Not on file Legal Sex Female 3:49 PM CDT Gender Identity Not on file Sexual Orientation Not on file documented as of this encounter Plan of Treatment Upcoming Encounters Date Type Department Care Team (Late Contact Info) Description 07/10/2024 10:30 AM CDT Office Visit [facility] Oncology and Hematology - [address] [place] [address] Lorne Jacobo MD [address] [place] [address] documented as of this encounter Procedures Procedure Name Priority Date/Time Associated Diagnosis Comments MAMMO SCREENING BILAT Routine 06/23/2024 12:36 PM CDT documented in this encounter Results * MAMMO SCREENING BILAT (06/23/2024 12:36 PM CDT) Anatomical Region Laterality Modality Breast Bilateral Mammography Lorne Jacobo MD MAMMO ORDERABLES Final Result documented in this encounter Visit Diagnoses Not on filedocumented in this encounter Care Teams Bakery Assistant Relationship Specialty Start Date End Date Braxton Young MD [address] [place] [address] PCP - General Internal Medicine 10/18/20 documented as of this encounter
--- OUTSIDE RECORDS SUMMARY | 2024-06-23 12:50 | XMS_ITS | Clinical Summary ---
Author Organization [facility] Albina Johnson Address [address] [place] [address] Care Team Providers Care Chipper Machine Operator Name Role Phone Braxton Young MD Primary Care Provider + [phone] Allergies No known active allergies Medications simvastatin [...] Encounters Date Type Department Care Team Description 06/23/2024 Orders Only [facility] Oncology and Hematology - [place] [address] [address] [place] [address] Lorne Jacobo MD 05/13/2024 External Device Data STL ABSTRACTION Provider, [...] Comments Blood Pressure 131/74 01/10/2024 2:24 PM RADAR ENGINEER Pulse 91 01/10/2024 2:24 PM RADAR ENGINEER Temperature 36.6 C (97.8 F) 01/10/2024 2:24 PM RADAR ENGINEER Respiratory Rate 16 01/10/2024 2:24 PM RADAR ENGINEER Oxygen Saturation 96% 06/26/2023 10: 14 AM CDT Inhaled Oxygen Concentration - - Weight 87.5 kg (192 lb 12.8 oz) 01/10/2024 2:24 PM RADAR ENGINEER Height 162.6 cm (5' 4 ) 12/04/2021 9:44 AM CDT Body Mass Index 33.09 12/04/2021 9:44 AM CDT Plan of Treatment Upcoming Encounters Date Type Department Care Team (Late st Contact Info) Description 07/10/2024 10:30 AM CDT Office Visit [facility] Oncology and Hematology - [address] [facility] [address] [place] [address] Lorne Jacobo MD [address] [facility] [address] [place] [address] Health Maintenance Due Date Last [...] Flex Sig/CT Colonography Q 5 years Discontinued Procedures Procedure Name Priority Date/Time Associated Diagnosis Comments MAMMO SCREENING BILAT Routine 06/23/2024 12:36 PM CDT from Last 3 Months Results * MAMMO SCREENING BILAT (06/23/2024 12:36 PM CDT) Anatomical Region Laterality Modality Breast Bilateral Mammography Lorne Jacobo MD MAMMO ORDERABLES Final Result from Last 3 Months Insurance MEDICARE PART A AND B [facility] [employer]AL MEDICARE PART A AND B [facility] [employer] Care Teams Chipper Machine Operator Relationship Specialty Start Date End Date Braxton Young MD [address] [place] [phone] PCP - General Internal Medicine 10/18/20
--- OUTSIDE RECORDS SUMMARY | 2024-06-23 12:50 | XMS_ITS | Clinical Summary ---
Author Organization [facility] Address [address] [address] Phone Care Team Providers Care Teaching Aide Name Role Phone Braxton Young MD Primary Care Provider [phone] Allergies No known active allergies Medications alendronate [...] on file Legal Sex Female 9:12 AM SR VICE PRESIDENT Gender Identity Not on file Sexual Orientation Not on file Last Filed Vital Signs Vital Sign Reading Time Taken Comments Blood Pressure 118/76 03/22/2017 9:21 AM SR VICE PRESIDENT Pulse 76 03/22/2017 9:21 AM SR VICE PRESIDENT Temperature 36.8 C (98.2 F) 03/22/2017 9:21 AM SR VICE PRESIDENT Respiratory Rate 18 03/22/2017 9:21 AM SR VICE PRESIDENT Oxygen Saturation 95% 03/22/2017 9:21 AM SR VICE PRESIDENT Inhaled Oxygen Concentration - - Weight 76.2 kg (168 lb) 03/22/2017 9:21 AM SR VICE PRESIDENT Height 165.1 cm (5' 5 ) 03/22/2017 9:21 AM SR VICE PRESIDENT Body Mass Index 27.96 03/22/2017 9:21 AM SR VICE PRESIDENT Plan of Treatment Health Maintenance Due Date [...] Recently Relevant to Health Maintenance Insurance MEDICARE [facility] Care Teams Teaching Aide Relationship Specialty Start Date End Date Braxton Young MD [address] [place] [address] PCP - General Internal Medicine 04/25/16
== END 2024-06-23 11:21 | disposition home or self-care (01) ==
PROVIDERS: PCP Emergency Medicine; Visit Provider Emergency Medicine
DX: M16.12 Unilateral primary osteoarthritis, left hip (principal)
CPT/HCPCS: 73502

== ENCOUNTER 2024-07-01 10:16 | Outpatient (CLI) | payer MEDICARE, BC, SELFPAY ==
[2024-07-01 10:37] LABS: Basophils Absolute Auto 0.1 K/mm3 (0.0-0.1); Basophils Percent Auto 1.4 % (0.2-1.2); Eosinophils Absolute Auto 0.1 K/mm3 (0-0.3); Eosinophils Percent Auto 2.5 % (0-4.4); Hematocrit 41.1 % (37.0-47.0); Immature Granulocyte Absolute 0.01 K/mm3 (0.00-0.031); Immature Granulocyte Percent A 0.2 % (0-0.5); Lymphocytes Absolute Auto 1.75 K/mm3 (0.9-3.2); Lymphocytes Percent Auto 30.8 % (18.3-44.2); Mean Corpuscular HGB Conc 34.1 g/dl (32-36); Mean Corpuscular Hemoglobin 30.4 pg (26-34); Mean Corpuscular Volume 89.3 fl (80-100); Mean Platelet Volume 9.1 fl (7.4-10.4); Monocytes Absolute Auto 0.4 K/mm3 (0.1-0.6); Monocytes Percent Auto 7.2 % (2.6-8.5); Neutrophils Absolute Auto 3.3 K/mm3 (1.3-6.7); Neutrophils Percent Auto 57.9 % (45.5-73.1); Platelet Count Result 226 k/mm3 (150-375); White Blood Count 5.7 K/mm3 (4.5-10.0)
--- OUTSIDE RECORDS SUMMARY | 2024-07-01 11:01 | XMS_ITS | Clinical Summary ---
Author Organization [facility] Address [address], [address] [address] Phone Care Team Providers Care Lighting Specialist Name Role Phone Braxton Young MD Primary Care Provider [phone] Allergies No known active allergies Medications alendronate [...] on file Legal Sex Female 9:12 AM PLASTIC BUBBLE PACKER Gender Identity Not on file Sexual Orientation Not on file Last Filed Vital Signs Vital Sign Reading Time Taken Comments Blood Pressure 118/76 03/22/2017 9:21 AM PLASTIC BUBBLE PACKER Pulse 76 03/22/2017 9:21 AM PLASTIC BUBBLE PACKER Temperature 36.8 C (98.2 F) 03/22/2017 9:21 AM PLASTIC BUBBLE PACKER Respiratory Rate 18 03/22/2017 9:21 AM PLASTIC BUBBLE PACKER Oxygen Saturation 95% 03/22/2017 9:21 AM PLASTIC BUBBLE PACKER Inhaled Oxygen Concentration - - Weight 76.2 kg (168 lb) 03/22/2017 9:21 AM PLASTIC BUBBLE PACKER Height 165.1 cm (5' 5 ) 03/22/2017 9:21 AM PLASTIC BUBBLE PACKER Body Mass Index 27.96 03/22/2017 9:21 AM PLASTIC BUBBLE PACKER Plan of Treatment Health Maintenance Due Date [...] Recently Relevant to Health Maintenance Insurance MEDICARE [facility] Care Teams Lighting Specialist Relationship Specialty Start Date End Date Braxton Young MD [address] [place] [address] PCP - General Internal Medicine 04/25/16
--- OUTSIDE RECORDS SUMMARY | 2024-07-01 11:01 | XMS_ITS | Clinical Summary ---
Author Organization [facility] Albina Johnson Address [address] [place] [address] Care Team Providers Care Shipping Room Helper Name Role Phone Braxton Young MD Primary Care Provider [phone] Allergies No known active allergies Medications simvastatin [...] Care Team Description 06/23/2024 Orders Only [facility] Oncology and Hematology - [place] [address] [place] [id number] Lorne Jacobo MD 05/13/2024 External Device Data [...] Comments Blood Pressure 131/74 01/10/2024 2:24 PM DEPUTY DIRECTOR OF FINANCE Pulse 91 01/10/2024 2:24 PM DEPUTY DIRECTOR OF FINANCE Temperature 36.6 C (97.8 F) 01/10/2024 2:24 PM DEPUTY DIRECTOR OF FINANCE Respiratory Rate 16 01/10/2024 2:24 PM DEPUTY DIRECTOR OF FINANCE Oxygen Saturation 96% 06/26/2023 10: 14 AM CDT Inhaled Oxygen Concentration - - Weight 87.5 kg (192 lb 12.8 oz) 01/10/2024 2:24 PM DEPUTY DIRECTOR OF FINANCE Height 162.6 cm (5' 4 ) 12/04/2021 9:44 AM CDT Body Mass Index 33.09 12/04/2021 9:44 AM CDT Plan of Treatment Upcoming Encounters Date Type Department Care Team (Late st Contact Info) Description 07/10/2024 10:30 AM CDT Office Visit [facility] Oncology and Hematology - [place] [address] [facility] [address] [place] [address] Lorne Jacobo MD [address] [facility] [address] [place] [address] Health Maintenance Due Date Last [...] Months Insurance MEDICARE PART A AND B [facility] [employer] MEDICARE PART A AND B [facility] [employer] Care Teams Shipping Room Helper Relationship Specialty Start Date End Date Braxton Young MD [address] [place] [phone] PCP - General Internal Medicine 10/18/20
[2024-07-01 11:51] LABS: Alanine Aminotransferase 22 U/L (6-35); Albumin Level 4.1 g/dL (3.5-5.1); Alkaline Phosphatase 49 U/L (38-126); Anion Gap 7 mmol/L (4-12); Aspartate Amino Transferase 28 U/L (14-36); Bilirubin,Total 0.6 mg/dL (0.2-1.3); Blood Urea Nitrogen 13 mg/dL (7-17); Calcium 9.1 mg/dL (8.4-10.2); Carbon Dioxide 31 mmol/L (22-30); Chloride 102 mmol/L (98-107); Estimated Glomerular Filt Rate > 60; Glucose 96 mg/dL (65-110); Potassium 3.2 mmol/L (3.4-5.0); Sodium 140 mmol/L (137-145)
[2024-07-03 05:18] LABS: CA 15-3 25 U/mL (<32)
== END 2024-07-01 10:17 | disposition home or self-care (01) ==
LOC: ANHLAB 10:17
PROVIDERS: PCP Emergency Medicine; Visit Provider Internal Medicine Hematology & Oncology
DX: C50.912 Malignant neoplasm of unspecified site of left female breast (principal); Z17.0 Estrogen receptor positive status [ER+]
CPT/HCPCS: 36415; 80053; 85025; 86300

== ENCOUNTER 2024-08-11 09:29 | Outpatient (CLI) | payer MEDICARE, BC, SELFPAY ==
--- OUTSIDE RECORDS SUMMARY | 2024-08-11 10:21 | XMS_ITS | Clinical Summary ---
Author Organization [facility] Albina Johnson Address [address] [place] [address] Care Team Providers Care Private Duty Rn Name Role Phone Braxton Young MD Primary Care Provider + [phone] Allergies No known active allergies Medications simvastatin [...] Encounters Date Type Department Care Team Description 07/28/2024 External Device Data ST[facility] ABSTRACTION Provider, Abstract 07/21/2024 External Device Data [facility] ABSTRACTION Provider, Abstract 07/21/2024 External Device Data [facility] ABSTRACTION Provider, Abstract 07/15/2024 External Device Data [place] ABSTRACTION Provider, Abstract 07/14/2024 External Device Data [place] ABSTRACTION Provider, Abstract 07/10/2024 10:30 AM CDT Office Visit [facility] Oncology and Hematology - [place] [address] [place] [address] Lorne Jacobo MD Malignant neoplasm of left breast in female, estrogen receptor positive, unspecified site of breast (CMS/HCC) (Primary Dx) 07/03/2024 Orders Only [facility] Oncology and Hematology - [place] [address] [place] [address] Lorne Jacobo MD 07/02/2024 Orders Only [facility] Oncology and Hematology - [place] [address] [place] [address] Lorne Jacobo MD 07/01/2024 Orders Only [facility] Oncology and Hematology - [place] [address] [place] [address] Lorne Jacobo MD 06/23/2024 Orders Only [facility] Oncology and Hematology - [address] [place] [place] [address] Lorne Jacobo MD 05/13/2024 External Device Data [...] Sign Reading Time Taken Comments Blood Pressure 110/57 07/10/2024 10:19 AM CDT Pulse 94 07/10/2024 10:19 AM CDT Temperature 36.7 C (98 F) 07/10/2024 10:19 AM CDT Respiratory Rate 15 07/10/2024 10:19 AM CDT Oxygen Saturation 93% 07/10/2024 10:19 AM CDT Inhaled Oxygen Concentration - - Weight 83.3 kg (183 lb 9.6 oz) 07/10/2024 10:19 AM CDT Height 162.6 cm (5' 4) 12/04/2021 9:44 AM CDT Body Mass Index 31.51 12/04/2021 9:44 AM CDT Plan of Treatment Upcoming Encounters Date Type Department Care Team (Late st Contact Info) Description 01/14/2025 11:30 AM YARD LABOR SUPERVISOR Office Visit [facility] Oncology and Hematology - [place] [address] [place] [address] [facility] [address] [place] [address] Lorne Jacobo MD [address] [facility] [address] [place] [address] Health Maintenance Due Date Last [...] Procedure Name Priority Date/Time Associated Diagnosis Comments CBC WITH DIFFERENTIAL Routine 07/01/2024 3:57 PM CDT COMPREHENSIVE METABOLIC PANEL Routine 07/01/2024 10:26 AM CDT CHG CA 15 3 Routine 07/01/2024 9:31 AM CDT MAMMO SCREENING BILAT Routine 06/23/2024 12:36 PM CDT from Last 3 Months Results * CBC WITH DIFFERENTIAL (07/01/2024 3:57 PM CDT) Blood us Lorne Jacobo MD HEMATOLOGY ORDERABLES Final Res ult * COMPREHENSIVE METABOLIC PANEL (07/01/2024 10:26 AM CDT) Blood us Lorne Jacobo MD CHEMISTRY ORDERABLES Final Resu lt * CHG CA 15 3 (07/01/2024 9:31 AM CDT) us Lorne Jacobo MD CHG - LABORATORY Final Result * MAMMO SCREENING BILAT (06/23/2024 12:36 PM CDT) Anatomical Region Laterality Modality Breast Bilateral Mammography us Lorne Jacobo MD MAMMO ORDERABLES Final Result from Last 3 Months Insurance MEDICARE PART A AND B [facility] [employer] MEDICARE PART A AND B [facility] Care Teams Private Duty Rn Relationship Specialty Start Date End Date Braxton Young MD [address] [place] [phone] PCP - General Internal Medicine 10/18/20
--- OUTSIDE RECORDS SUMMARY | 2024-08-11 10:21 | XMS_ITS | Clinical Summary ---
Author Organization [facility] Address [address] [address] Phone Care Team Providers Care Desizing Machine Operator Name Role Phone Braxton Young MD Primary Care Provider Allergies No known active allergies Medications alendronate [...] on file Legal Sex Female 9:12 AM MUSHROOM CULTIVATOR Gender Identity Not on file Sexual Orientation Not on file Last Filed Vital Signs Vital Sign Reading Time Taken Comments Blood Pressure 118/76 03/22/2017 9:21 AM MUSHROOM CULTIVATOR Pulse 76 03/22/2017 9:21 AM MUSHROOM CULTIVATOR Temperature 36.8 C (98.2 F) 03/22/2017 9:21 AM MUSHROOM CULTIVATOR Respiratory Rate 18 03/22/2017 9:21 AM MUSHROOM CULTIVATOR Oxygen Saturation 95% 03/22/2017 9:21 AM MUSHROOM CULTIVATOR Inhaled Oxygen Concentration - - Weight 76.2 kg (168 lb) 03/22/2017 9:21 AM MUSHROOM CULTIVATOR Height 165.1 cm (5' 5) 03/22/2017 9:21 AM MUSHROOM CULTIVATOR Body Mass Index 27.96 03/22/2017 9:21 AM MUSHROOM CULTIVATOR Plan of Treatment Health Maintenance Due Date Last Done Comments Hepatitis C Virus (HCV) Screening 1945 TdaP Immunization 1945 Pneumococcal Immunization (50+ years) (1 of 1 - PCV) 10/07/1995 Zoster Immunization (1 of 2) 10/07/1995 Respiratory Syncytial Virus (RSV) Immunization (Adult) (1 - 1-dose 75+ series) 2020 SARS-COV-2 Immunization ( - 2023- season) 2023 Influenza Immunization (Season Ended) 2024 Colonoscopy Discontinued 03/20/2017, 03/29, 09/25/2006, Additional history exists Colorectal Cancer Screening Discontinued Cologuard Discontinued Hepatitis B Immunization Aged Out No longer eligible based on patient's age to complete this topic Human Papillomavirus (HPV) Immunization Aged Out No longer eligible based [...] Recently Relevant to Health Maintenance Insurance MEDICARE [facility] Care Teams Desizing Machine Operator Relationship Specialty Start Date End Date Braxton Young MD [address] [place] [address] PCP - General Internal Medicine 04/25/16
[2024-08-11 10:55] LABS: Thyroid Stimulating Hormone 0.561 uIU/mL (0.465-4.680)
== END 2024-08-11 09:30 | disposition home or self-care (01) ==
LOC: ANHLAB 09:31
PROVIDERS: PCP Emergency Medicine; Visit Provider Emergency Medicine
DX: E03.9 Hypothyroidism, unspecified (principal); R53.83 Other fatigue
CPT/HCPCS: 36415; 84443

== ENCOUNTER 2024-12-16 09:50 | Outpatient (CLI) | payer MEDICARE, BC, SELFPAY ==
[2024-12-16 11:20] LABS: Alanine Aminotransferase 17 U/L (6-35); Albumin Level 4.1 g/dL (3.5-5.1); Alkaline Phosphatase 49 U/L (38-126); Anion Gap 6 mmol/L (4-12); Aspartate Amino Transferase 25 U/L (14-36); Bilirubin,Total 0.6 mg/dL (0.2-1.3); Blood Urea Nitrogen 14 mg/dL (7-17); Calcium 9.1 mg/dL (8.4-10.2); Carbon Dioxide 29 mmol/L (22-30); Chloride 104 mmol/L (98-107); Cholesterol 200 mg/dL (0-200); Estimated Glomerular Filt Rate > 60; Glucose 93 mg/dL (65-110); HDL Direct 78 mg/dL; Sodium 139 mmol/L (137-145); Total Protein 6.9 g/dL (6.3-8.2); Triglycerides 105 mg/dL (<150)
[2024-12-16 11:26] LABS: Potassium 3.6 mmol/L (3.4-5.0)
== END 2024-12-16 09:51 | disposition home or self-care (01) ==
PROVIDERS: PCP Emergency Medicine; Visit Provider Emergency Medicine
DX: E78.5 Hyperlipidemia, unspecified (principal); E55.9 Vitamin D deficiency, unspecified
CPT/HCPCS: 36415; 80053; 80061; 82306

== ENCOUNTER 2025-02-11 14:48 | Outpatient (CLI) | payer MEDICARE, BC, SELFPAY ==
--- NOTE | ~2025-02-11 | MR_ITS ---
EXAMINATION: MR hip LT wo/w con DATE: 02/11/2025 16:00 INDICATION: Left hip pain TECHNIQUE: Magnetic resonance imaging (MRI) of the without and with 15 mL Multihance hip was performed without intravenous contrast. Sequences included full-field axial PD-weighted FS FSE and T1-weighted FSE, coronal of the pelvis with PD-weighted FS FSE, T2-weighted FSE and T1-weighted FSE, small field of view of the left hip with axial PD-weighted FS FSE, sagittal PD-weighted FS FSE, coronal PD-weighted FS FSE and coronal T2 weighted FSE. Additional radial T1-weighted FGR oriented orthogonal to the acetabular rim were obtained for evaluation of the labrum. Postcontrast sequences included large [id number] axial T1-weighted FS FSE of the entire pelvis and small vycwj-jg-qjle coronal T1-weighted FS FSE of the left hip. COMPARISON: None FINDINGS: Bones/labrum/cartilage: Alignment is normal. No fracture, avascular necrosis or pathologic marrow replacing process. Severe lower lumbar spondylosis with Modic type I fibrovascular degenerative endplate changes at the severely narrowed L4-L5 and L5-S1 disc spaces. There is degenerative tearing of the anterosuperior to posterior and superior left acetabular labrum. 5 mm para labral cyst along the superolateral margin of the left acetabulum aspiration the large [id number]-[id number] coronal T2-weighted images. Mild osteoarthritis at the left hip with posterior predominant mild nonuniform joint space narrowing. Fluid: Symmetric physiologic amount of fluid within both hip joints. Soft tissues: Normal and symmetric muscle bulk and signal in the pelvis and visualized proximal thighs. There is T2 hyperintense nonenhancing left radius minimus bursitis. Mild left gluteus minimus tendinopathy without discrete tear and with small enthesophyte at its greater trochanteric insertion. Remainder of the bilateral gluteal tendons along with the bilateral iliopsoas and proximal left hamstring tendons are normal. There is mild tendinopathy without tear at the ischial tuberosity origin of the proximal right hamstring tendons and associated mild right ischial bursitis. Bladder is unremarkable. Multilobulated cystic lesion at the cervix measuring 3.8 x 2.0 x 1.3 cm without evident solid enhancing soft tissue component most likely representing a tunnel cluster. Limited evaluation of visceral organs of the pelvis is otherwise unremarkable. No pathologically enlarged pelvic/inguinal lymphadenopathy. IMPRESSION: 1. Mild left hip osteoarthritis with diffuse degenerative tearing of the left acetabular labrum and small associated para labral cyst. 2. Mild left gluteus minimus bursitis with associated gluteus minimus tendinopathy without tear. 3. Mild right ischial bursitis with similar mild tendinopathy without tear at the proximal right hamstring tendons. 4. 3.8 x 2.0 x 1.3 similar multilobulated cystic lesion at the cervix which could represent a tunnel cluster versus multiple nabothian cysts. Reviewed, dictated and finalized at location A. QUER IMPRESSION: 1. Mild left hip osteoarthritis with diffuse degenerative tearing of the left a cetabular labrum and small associated para labral cyst. 2. Mild left gluteus minimus bursitis with associated gluteus minimus tendinopa thy without tear. 3. Mild right ischial bursitis with similar mild tendinopathy without tear at t he proximal right hamstring tendons. 4. 3.8 x 2.0 x 1.3 similar multilobulated cystic lesion at the cervix which cou ld represent a tunnel cluster versus multiple nabothian cysts.
--- NOTE | ~2025-02-11 | MR_ITS ---
EXAMINATION: MR lumbar spine wo con DATE: 02/11/2025 15:49 INDICATION: Low back pain TECHNIQUE: Magnetic resonance imaging (MRI) of the lumbar spine was performed without intravenous contrast. Sequences included sagittal T2-weighted FSE, sagittal T2-weighted FS FSE, sagittal T1-weighted FSE, and axial T2-weighted FSE. COMPARISON: None FINDINGS: 4 mm retrolisthesis L1 on L2, 5 mm retrolisthesis L2 on L3, 6 mm anterolisthesis L4 on L5 and 2 mm retrolisthesis L5 on S1. Vertebral body heights are normal. There are mild Modic type I fibrovascular degenerative endplate changes along portions of the L1-L2, L2-L3, L4-5 and L5-S1 disc spaces. There is severe disc height loss at L5-S1 and on the left side of L2-L3. Moderate disc height loss at T10-T11, L1-L2 and L4-L5. Mild disc height loss at T11-T12, T12-L1 and L3-L4. The conus medullaris terminates at L1-L2. There is normal signal in the caudal spinal cord. Paravertebral soft tissues are unremarkable. The following disc levels are specifically discussed: T10-T11: Disc is bulging. There is severe bilateral facet joint osteoarthritis. There is moderate to severe bilateral neural foraminal stenosis. There is moderate central canal stenosis. T11-T12: Disc is mildly bulging. There is moderate bilateral facet osteoarthritis. There is mild bilateral neural foraminal stenosis. There is mild central canal stenosis. T12-L1: Disc is mildly bulging. There is mild bilateral facet joint osteoarthritis. There is minimal left neural foraminal stenosis. There is mild central canal stenosis. L1-L2: Disc is bulging with annular fissure and superimposed central to left paracentral disc extrusion with disc material extending up to 6 mm caudal to the level of the superior endplate of L2. There is mild to moderate bilateral facet joint osteoarthritis. There is moderate right and moderate to severe left neural foraminal stenosis. There is mild central canal stenosis. L2-L3: Disc is bulging with annular fissure. There is hypertrophy of the ligamentum flavum. There is mild to moderate bilateral facet joint osteoarthritis. There is moderate bilateral neural foraminal stenosis. There is mild to moderate central canal stenosis. L3-L4: Disc is bulging with annular fissure. There is hypertrophy of the ligamentum flavum. There is severe bilateral facet joint osteoarthritis. There is moderate bilateral neural foraminal stenosis. There is moderate to severe central canal stenosis. L4-L5: Disc is bulging with annular fissure. There is severe bilateral facet joint osteoarthritis. There is moderate bilateral neural foraminal stenosis. There is severe central canal stenosis. L5-S1: Disc is bulging with annular fissure. There is mild to moderate bilateral facet joint osteoarthritis. There is moderate left and mild to moderate right neural foraminal stenosis. There is mild central canal stenosis. IMPRESSION: 1. Severe lumbar spondylosis most notable for moderate neural from stenosis at multiple levels in the left and right and severe central canal stenosis at L4-L5. Reviewed, dictated and finalized at location A. CAL RECORDS CUSTODIAN IMPRESSION: 1. Severe lumbar spondylosis most notable for moderate neural from stenosis at multiple levels in the left and right and severe central canal stenosis at L4-L 5.
== END 2025-02-11 14:49 | disposition home or self-care (01) ==
LOC: MICIMG 14:49
PROVIDERS: PCP Emergency Medicine; Visit Provider Emergency Medicine
DX: M16.12 Unilateral primary osteoarthritis, left hip (principal); M70.72 Other bursitis of hip, left hip; M47.896 Other spondylosis, lumbar region
CPT/HCPCS: 72148; 73723; A9577